=== PATIENT | male | born 1945 | race Caucasian/White ===

== ENCOUNTER 2018-11-28 12:37 | Outpatient (CLI) | payer MEDICARE ==
--- NOTE | 2018-11-28 13:59 | CT ---
CT CHEST NONCONTRAST PULMONARY LOW DOSE LUNG SCAN: HISTORY: Tobacco abuse. FINDINGS: Lungs are hyperinflated. Mild peripheral interstitial scarring and minimal thickening. No pleural f luid or pneumothorax. No focal lung mass is evident. Lack of contrast limits evaluation of the soft tissues. A lobular low-density structure between the origin of the brachiocephalic artery and the lower trachea has the appearance of a small amount of fl uid within the superior pericardial reflection. No bulky adenopathy. There is calcification in the arterial structures. IMPRESSION: 1. Lung RADS category 1. Negative. Suggest routine followup. 2. Atherosclerosis. POS: [facility]
== END 2018-11-28 12:38 | disposition home or self-care (01) ==
LOC: CT 12:37
PROVIDERS: ATTEND Family Medicine
DX: Z87.891 Personal history of nicotine dependence (principal); I70.90 Unspecified atherosclerosis
CPT/HCPCS: G0297

== ENCOUNTER 2020-05-12 21:42 | Inpatient (IN) | payer MEDICARE ==
[~2020-05-12 21:42] MED LIST: Iopamidol-370 76% 500 ML 1 ML ONE
[2020-05-12] MEDS ORDERED: Aspirin Chewable 81 MG TAB ONE (22:28)
[2020-05-12 22:42] LABS: #Lymphocytes 2.5 thou/uL (1.20-3.40); #Monocytes 0.7 thou/uL (0.11-0.59); %Basophils 0.2 % (0.0-1.0); %Eosinophils 0.3 % (0.0-10.0); %Lymphocytes 24.5 % (21.0-51.0); %Monocytes 7.1 % (0.0-10.0); %Neutrophils 67.9 % (42.0-75.0); Hemoglobin 13.7 g/dL (14.0-18.0); Mean Corpuscular HGB CONC 33.3 g/dL (32.0-36.0); Mean Corpuscular Hemoglobin 31.5 pg (27.0-31.0); Mean Corpuscular Volume 94.6 fL (78.0-98.0); Mean Platelet Volume 9.4 fL (7.4-10.4); Platelet Count 276 thou/uL (130-400); RBC Distribution Width 13.2 % (11.5-14.5); Red Blood Cell (RBC) Count 4.35 mill/uL (4.70-6.10); White Blood Cell (WBC) Count 10.2 thou/uL (4.8-10.8)
[2020-05-12 22:49] LABS: PTT 34.5 sec (22.9-36.1); Prothrombin Time 13.2 sec (12.0-14.7)
[2020-05-12 23:06] LABS: ALT (SGPT) 15 U/L (8-55); AST (SGOT) 20 U/L (5-34); Albumin 4.1 g/dL (3.4-4.8); Alkaline Phosphatase 69 U/L (40-110); Anion Gap 15 mmol/L (10-20); BUN (Urea Nitrogen) 32 mg/dL (8.4-25.7); Bilirubin, Total 0.3 mg/dL (0.2-1.2); Calc. Creatinine Clearance 0 mL/min (70-130); Calcium 9.3 mg/dL (7.8-10.44); Carbon Dioxide 25 mmol/L (23-31); Chloride 101 mmol/L (98-107); Estimated GFR-MDRD 39; Globulin 3.3 g/dL (2.4-3.5); Glucose 104 mg/dL (83-110); Potassium 4.7 mmol/L (3.5-5.1); Protein, Total 7.4 g/dL (5.8-8.1); Sodium 136 mmol/L (136-145)
[2020-05-13] MEDS ORDERED: HumaLOG 300 UNITS/3 ML VIAL SC PRN (02:02)
[2020-05-13] MEDS ORDERED: Acetaminophen 325 MG TAB PO PRN (02:02)
[2020-05-13] MEDS ORDERED: Ondansetron PF 4 MG/2 ML Vial IVP PRN (02:02)
[2020-05-13] MEDS ORDERED: Ondansetron ODT 4 MG TAB PO PRN (02:02)
[2020-05-13] MEDS ORDERED: Dextrose 50% Abboject 50 ML SYRINGE SLOW IVP PRN (02:02)
[2020-05-13] MEDS ORDERED: Dextrose 5% in Water 1,000 ML IV PRN (02:02)
--- NOTE | 2020-05-13 02:23 | PDOC.FPRHP ---
- History of Present Illness Chief Complaint: Dysathria History of Present Illness: Pt is a 74 y/o M who reported to ED today after episodes of dysarthria today. He stated that after dinner around 5-6pm he was gardening and noticed that he was having difficulty forming words and felt as if he was slurring his words. While this was occurring pt stated that he did not experience any weakness, numbness, CP/SOB, or palpitations. Pt states that this is the first time he has experienced something like this. He denies hx of CVA or WA. Pt did admit to having a few episodes of palpitations over the past year, but because of their infrequency has thought nothing of it. ED Course: Pt was outside of TPA window upon arrival to ED. CTA small left posterior cerebral artery occlusion, not amenable to clot retrieval. CT head showed no acute bleed. EKG showed Afib w/ RVR HR 141, non-specific T wave changes. Labs: troponin = 0.038. Bun/Hand Twister = 32/1.7. - Allergies/Adverse Reactions Allergies Allergy/AdvReac Type Severity Reaction Status Date / Time No Known Drug Allergies Allergy Unverified 05/13/20 02:18 - History PMHx: -Diabetes -Hypothyroidism PSHx: -Appendectomy -Removal of benign abdominal tumor @ age 4 -Cholecystecomy -Cubital Tunnel -Cervical laminectomy FHx: Social: Denies ETOH use. Denies drug use. Not current smoker. Former smoker, quit 10 years ago. - Review of Systems General: denies: fever/chills ENT: denies: nasal congestion Respiratory: denies: cough, shortness of breath Cardiovascular: denies: chest pain, palpitation Gastrointestinal: denies: nausea, vomiting, diarrhea, constipation, abdominal pain Genitourinary: denies: dysuria, polyuria Neurological: denies: numbness, syncope, weakness - Vital signs BP: 104/71, HR 82, RR 16, Temp 98.5, O2 99% - Physical Exam Constitutional: NAD, awake, alert and oriented HEENT: normocephalic and atraumatic, grossly normal hearing, other (R hearing aid present) Heart: RRR, normal S1/S2 Lungs: CTAB, no respiratory distress, no rales/rhonchi, no wheezing Abdomen: soft, non-tender, bowel sounds present, no masses/distention Musculoskeletal: normal tone Neurological: no focal deficit, CN II-XII intact, normal sensation Skin: no rash/lesions, capillary refill <2 seconds Psychiatric: normal mood and affect, good judgment and insight FMR H&P: Results - Labs Result Diagrams: 05/12/20 22:02 05/13/20 07:25 Lab results: WBC 10.2 thou/uL (4.8-10.8) 05/12/20 22:02 Hgb 13.7 g/dL (14.0-18.0) L 05/12/20 22:02 Hct 41.1 % (42.0-52.0) L 05/12/20 22:02 MCV 94.6 fL (78.0-98.0) 05/12/20 22:02 Plt Count 276 thou/uL (130-400) 05/12/20 22:02 Neutrophils % 67.9 % (42.0-75.0) 05/12/20 22:02 Sodium 136 mmol/L (136-145) 05/12/20 22:02 Potassium 4.7 mmol/L (3.5-5.1) 05/12/20 22:02 Chloride 101 mmol/L (98-107) 05/12/20 22:02 Carbon Dioxide 25 mmol/L (23-31) 05/12/20 22:02 BUN 32 mg/dL (8.4-25.7) H 05/12/20 22:02 Creatinine 1.70 mg/dL (0.7-1.3) H 05/12/20 22:02 Glucose 104 mg/dL (83-110) 05/12/20 22:02 Calcium 9.3 mg/dL (7.8-10.44) 05/12/20 22:02 Total Bilirubin 0.3 mg/dL (0.2-1.2) 05/12/20 22:02 AST 20 U/L (5-34) 05/12/20 22:02 ALT 15 U/L (8-55) 05/12/20 22:02 Alkaline Phosphatase 69 U/L (40-110) 05/12/20 22:02 CK-MB (CK-2) 3.0 ng/mL (0-6.6) 05/12/20 22:02 Serum Total Protein 7.4 g/dL (5.8-8.1) 05/12/20 22:02 Albumin 4.1 g/dL (3.4-4.8) 05/12/20 22:02 FMR H&P: A/P - Problem List (1) Acute ischemic stroke Current Visit: Yes Status: Acute Code(s): I63.9 - CEREBRAL INFARCTION, UNSPECIFIED (2) New onset a-fib Current Visit: Yes Status: Acute Code(s): I48.91 - UNSPECIFIED ATRIAL FIBRILLATION (3) Diabetes mellitus, non-insulin dependent Current Visit: Yes Status: Chronic Code(s): ETB9676 - (4) Hypothyroidism Current Visit: Yes Status: Chronic Code(s): E03.9 - HYPOTHYROIDISM, UNSPECIFIED - Plan ## Acute Ischemic Stroke -outside of TPA window -CTA small left posterior cerebral artery occlusion, not amenable to clot retrieval -CT head showed no acute bleed -ASA and statin -Labs: A1C, lipid panel ordered -MRI in AM -consult neurology in AM ## New Onset Atrial Fibrillation -CHADs = 4, therapeutic dose of lovenox started -Labs: TSH, mag/phos -ECHO ordered -consult cardiology in AM ## CKD Stage 3 -BUN/Hand Twister = 32/1.7 -eGFR = 39 ## NIDDM -mild SSI -home medication: metformin, pioglitazone, ivokana -monitor glucose ## Hypothyroidism -home medication: levothyroxine VTE PPX: Lovenox GI PPX: none Diet: CC Code: Full PCP: [facility] Dispo: pt admitted to inpatient, stroke unit, will monitor closely. will consult neuro and cardiology in AM. FMR H&P: Upper Level - Plan Date/Time: 05/13/20 021 IFernanda, have evaluated this patient and agree with findings/plan as outlined by fashion intern resident. Pertinent changes/additions are listed here. 74YOM with a PMH notable for DMII & hypothyroidism who reported to ED today after episodes of dysarthria that began @ ~1700 today. Patient reports that after be came inside from gardening he noticed that he was having difficulty forming words and felt as if he was slurring his words. He then told his who brought him to the ED for evaluation. He denied any other neurologic symptoms such as headache, visoin changes, focal weakness or numbness/ paresthesias. Upon further questioning; however, he did admit to having a sporadic episodes of palpitations on and off over the past year. He denies any cardiac or stroke history. On exam the patient's VS were WNLs but during the interview his HR would go from normal range to the 150s but he was completely asymptomatic during this. His EKG on presentation showed Afib w/ RVR HR 141. His neuro exam was notable only for mild, trace dysarthria that he reported has markedly improved since arrival. Labs were notable for a slightly elevated trop of 0.038 & his Cr/eGFR were within his baseline range of CKD III w/ a Cr of 1.7 & eGFR of 39. The patient's head CTA was notable for a small left posterior cerebral artery occlusion; but, unfortunately, he was outside the time window for TPA. Neurosurgery was also consulted but reported his occlusion was not ammenable to surgical intervention. The patient will therefore be admitted to the stroke unit for close observation overnight & an MRI in the AM. Will consult the stroke team in the AM & start on ASA & statin therapy. Will obtain a FLP & A1c for further risk stratification. Regarding his newly diagnosed paroxysmal afib, will start on therapeutic lovenox BID dosing, obtain a TTE & consult cardiology in the AM. Rate controlled for now so no need for rate controlling meds. Will also check a TSH level as well as Mg & phos to r/o other organic etiologies for his a fib. Will resume his home meds for his DMII & hypothyroidism. Will renally dose all meds PRN 2/2 his CKDIII. Addendum - Attending - Attending Attestation Date/Time: 05/13/20 4946 I personally evaluated the patient and discussed the management with Dr. Tate on 05/12/2020 I agree with the History, Examination, Assessment and Plan documented above with any addition or exceptions noted below - 74YOM with a h/i Type 2 DM and hypothyroidism who reported to ED today after episodes of dysarthria that began @ ~1700 today when returning from dinner. Patient reports that he noticed that he was having difficulty forming words and felt as if he was slurring his words. Waited for couple of hours and when symptoms did not improve he then told his who brought him to the ED for evaluation. He denied any other neurologic symptoms such as headache, vision changes, focal weakness or numbness /paresthesias. Upon further questioning; however, he did admit to having a sporadic episodes of palpitations on and off over the past year. PMH/PSH/Meds/ SH reviewed and agree with resident's documentation. Afebrile VSS. Exam repeated by me and agree with resident's findings. Labs: WBC=10.2, H/=13.7/ 41.1, Awt=339, Ak=776, K=4.7, Uy=804, CO2=25, BUN/Cr=32/1.70, Ebjw=167, AST/ALT= 20/15, trop=0.027. CTA brain- small left posterior cerebral artery occlusion; CT brain - no acute infarct. A/P: 1) Left posterior cerebral CVA- Admit to stroke. PT/OT/ST; neuro consult. Will check lipids, TSH. 2) Paraxusmal A-fib- no prior diagnosis; most likely source of CVA. Will check echo and consult cardiology. Started on therapeutic lovenox. 3) DM- will check HgBA1c; continue home meds once bedside swallow passed.
[2020-05-13 04:01] LABS: Hemoglobin A1c 7.2 % (4.0-6.0)
[2020-05-13 04:11] LABS: Cardiac Risk 4.6 (Less than 4.5)
[2020-05-13 04:12] LABS: Phosphorus 3.3 mg/dL (2.3-4.7)
[2020-05-13 05:20] LABS: Troponin I 0.027 ng/mL (< 0.028)
--- NOTE | 2020-05-13 06:13 | PDOC.FM ---
- Subjective Subjective: Patient is feeling well. He denies any problems with his speech throughout the evening but feels that he was having trouble while talking to me. - Objective Vital Signs & Weight: BP 95/71, P 72, RR 18, 97% RA, T 98.4 Result Diagrams: 05/12/20 22:02 05/13/20 07:25 Additional Labs: Laboratory Tests 05/13/20 05/13/20 05/13/20 03:33 03:37 03:37 Hemoglobin A1c Phosphorus 3.3 Magnesium 2.0 Troponin I 0.027 Triglycerides Cholesterol LDL Cholesterol, Calc HDL Cholesterol Heart Disease Risk Ratio TSH 3rd Generation 2.0630 05/13/20 05/13/20 03:37 03:37 Hemoglobin A1c 7.2 H Phosphorus Magnesium Troponin I Triglycerides 183 H Cholesterol 174 LDL Cholesterol, Calc 99 HDL Cholesterol 38 Heart Disease Risk Ratio 4.6 TSH 3rd Generation Phys Exam - Physical Examination Constitutional: NAD HEENT: PERRLA, moist MMs, TM's clear Neck: full ROM Respiratory: no wheezing, no rales, no rhonchi, clear to auscultation bilateral Cardiovascular: no significant murmur, no rub irregular rhythm Gastrointestinal: soft, non-tender, no distention Musculoskeletal: no edema, pulses present Neurological: non-focal, normal sensation, moves all 4 limbs dysarthria Psychiatric: normal affect, A&O x 3 Dx/Plan - Plan Plan: ## Acute Ischemic Stroke -outside of tPA window -CTA small left posterior cerebral artery occlusion, not amenable to clot retrieval -CT head showed no acute bleed -ASA and statin -A1C 7.2 -Trig 183, total chol 174, LDL 99, HDL 38 -MRI in AM ## New Onset Atrial Fibrillation -CHADs = 4, therapeutic dose of lovenox started -TSH, Mg, Phos - wnl -ECHO ordered -consulted cardiology (05/13) ##GINNY -resolved -BUN/Cloth Bleaching Range Operator Chief = 32/1.7 --> 27/1.3 -eGFR = 39 --> 54 ## NIDDM -mild SSI -home medication: metformin, pioglitazone, ivokana -monitor glucose ## Hypothyroidism -home medication: levothyroxine VTE PPX: Lovenox GI PPX: none Diet: CC Code: Full PCP: [facility] Dispo: pt admitted to inpatient, stroke unit, will monitor closely. will consult neuro and cardiology in AM. Addendum - Attending - Attending Attestation Date/Time: 05/13/20 [id number] I personally evaluated the patient and discussed the management with Dr. Gonzales. I agree with the History, Examination, Assessment and Plan documented above with any addition or exceptions noted below. he is speech and articulation appear normal or close to normal this morning. MRI pending. Neuro and cardiology consults placed. high intensity statin, ASA, anticoagulation, and rate control underway. f/u specialist recs.
[2020-05-13] MEDS ORDERED: Enoxaparin Sodium 100 MG/ML SYRINGE ONE (06:25)
[2020-05-13] MEDS: Enoxaparin Sodium 100 MG/ML SYRINGE SC SCH ×2 (06:32→18:04)
[2020-05-13] MEDS: Levothyroxine Sodium 100 MCG TAB PO SCH (06:35)
--- NOTE | 2020-05-13 07:10 | CT ---
CT HEAD WITHOUT CONTRAST: Date: 05/12/2020 INDICATION: Level I stroke. Trouble speaking. No comparison. FINDINGS: Ventricles have normal size and position. There is no evidence of intracranial hemorrhage. There are chronic ischemic white matter changes. There is no evidence of acute cortical infarct. There is evide nce of old lacunar infarcts involving the left thalamus and the left lentiform nucleus. IMPRESSION: No evidence of acute cortical infarct. There are chronic ischemic changes as described. Findings relayed to Dr. Newsome at 2207 hours. CODE CR. POS: [facility]
--- NOTE | 2020-05-13 08:01 | CT ---
CTA HEAD WITH CONTRAST: Axial tomograms were obtained following an angio protocol with multiplanar reconstruction and 3d post processing. INDICATION: Stroke protocol. FINDINGS: The intracranial internal carotid arteries are patent. There is atherosclerotic calcification involving the cavernous portion of both internal carotid arter ies. This produces mild luminal narrowing bilaterally. Both middle cerebral arteries are patent and symmetric. No evidence of M1 stenosis. Anterior cerebral arteries are patent and symmetric. There is atretic A1 segment on the right. Basilar artery is small but patent. The posterior cerebral arteries are patent and symmetric proximally. There is evidence of occlusion of the left posterior cerebral artery in the paramedian cephalic ciste rn region at the T2 level. IMPRESSION: Question occlusion of the left posterior cerebral artery involving the P2 segment in the region of th e ambient cistern on the left. CTA NECK: Axial tomograms were obtained with multiplanar reconstruction. Three-D post processing. FINDINGS: No evidence of stenosis at the origin of the arch vessels. Common carotid arteries are patent. Mild atherosclerotic change is seen at the bulbs bilaterally. There is no evidence of internal carot id artery stenosis. Both internal carotid arteries are tortuous. The vertebral arteries are patent. Mildly dominant right vertebral. The left vertebral appears to t erminate in PICA. IMPRESSION: Mild atherosclerotic changes at the bulbs bilaterally. No evidence of extracranial internal carotid artery stenosis. Findings are related to Dr. Newsome. CODE CR POS: [facility]
[2020-05-13 08:07] LABS: Anion Gap 14 mmol/L (10-20); BUN (Urea Nitrogen) 27 mg/dL (8.4-25.7); Calc. Creatinine Clearance 0 mL/min (70-130); Calcium 8.8 mg/dL (7.8-10.44); Carbon Dioxide 24 mmol/L (23-31); Chloride 102 mmol/L (98-107); Estimated GFR-MDRD 54; Glucose 159 mg/dL (83-110); Potassium 4.1 mmol/L (3.5-5.1); Sodium 136 mmol/L (136-145)
[2020-05-13] MEDS ORDERED: Aspirin Chewable 81 MG TAB ONE (08:55)
[2020-05-13] MEDS: Pioglitazone HCl 15 MG TAB PO SCH (09:00)
[2020-05-13] MEDS: Aspirin 81 mg Enteric Coated Tablet PO SCH (09:00)
[2020-05-13] MEDS: metFORMIN 500 MG TAB PO SCH ×2 (09:00→18:05)
[2020-05-13] MEDS ORDERED: Enoxaparin Sodium 40 MG/0.4 ML SYRINGE SC SCH (09:00)
[2020-05-13] MEDS ORDERED: Magnevist 469MG/ML 20 ML VIAL ONE (09:36)
--- NOTE | 2020-05-13 10:44 | MRI ---
MRI BRAIN WITH AND WITHOUT CONTRAST: DATE: 05/13/2020 HISTORY: 74-year-old male with acute stroke due to atrial fibrillation TECHNIQUE: Multiplanar, multisequence MRI of the brain obtained pre and post IV injection of gadolinium based co ntrast agent. FINDINGS: There is no obstructive hydrocephalus. There is no midline shift or any other evidence of mass effect . There is no extra-axial fluid collection. There is a moderate degree of T2-hyperintensities in the cerebral white matter consistent with chronic ischemic white matter changes due to microvascular atherosclerosis. There is no abnormal enhancement, mass, recent hemorrhage, or restricted diffusion. There are are several tiny old lacunar infarctions in the left basal ganglia, and at least one in the left thalamus. Questionable very tiny old lacunar infarction in right renal ganglia. Filling defect within junction between the straight sinus and the torcular Herophili represents arach noid granulation. No dural venous sinus thrombosis. Absence of A1 segment of right anterior cerebral artery. Right A2 segment is supplied by left anterior cerebral artery via patent anterior co mmunicating artery. IMPRESSION: 1) moderate chronic ischemic white matter changes. 2) tiny old lacunar infarctions in left thalamus and left basal ganglia. 3) no acute findings
[2020-05-13 17:15] VITALS: BMI 30.4
--- NOTE | 2020-05-13 19:19 | CON ---
DATE OF CONSULTATION: HISTORY OF PRESENT ILLNESS: The patient is a 74-year-old gentleman with no previous cardiac history, who presents for evaluation of dysarthria. The patient was in his usual state of health, when he stared noting having difficulty speaking. He was brought to the emergency room for further evaluation. The patient denied having any palpitations. He denied having any chest discomfort or dyspnea. PAST MEDICAL HISTORY: 1. Diabetes mellitus. 2. Hypertension. PAST SURGICAL HISTORY: Appendectomy, cholecystectomy, elbow surgery. SOCIAL HISTORY: Former smoker. MEDICATIONS: 1. Metformin 500 b.i.d. 2. Actos 15 mg daily. SOCIAL HISTORY: Nonsmoker. ALLERGIES: NO KNOWN DRUG ALLERGIES. FAMILY HISTORY: No strong family history of coronary artery disease. REVIEW OF SYSTEMS: Ten-point system otherwise unremarkable. No history of easy bruising or bleeding. PHYSICAL EXAMINATION: GENERAL: A well-developed gentleman, in no acute distress. VITAL SIGNS: Blood pressure of 108/72. NECK: Showed no jugular venous distention. LUNGS: Clear to auscultation. HEART: Regular rate and rhythm. Normal S1 and S2. No murmurs. ABDOMEN: Nondistended. EXTREMITIES: Showed no edema. VASCULAR: Radial pulses 2+. LABORATORY DATA: Sodium 136, potassium 4.1, chloride 102, bicarbonate 24, BUN 27, creatinine 1.3, glucose was 159. White blood cell count is 10.2, hemoglobin 13.7, hematocrit 41.1, platelets 276. INR was 2.0. His EKG revealed atrial fibrillation with rapid ventricular response and nonspecific T-wave abnormality. CT scan revealed a questionable occlusion of the left posterior cerebral artery. There is atherosclerotic plaque in the internal carotid arteries with mild luminal narrowing. IMPRESSION: 1. Cerebrovascular accident. 2. New-onset atrial fibrillation. 3. Diabetes mellitus. This gentleman presents with a cerebrovascular accident. He has new onset atrial fibrillation, which converted to normal sinus rhythm. The patient will be started on a low-dose of beta-mavis. The patient has been treated with Lovenox and aspirin. From a cardiac standpoint, he has a CHADS-VAS score of 5. He will need a lifetime anticoagulation. I would recommend he be treated with Eliquis. We will check the patient's echocardiogram. Follow this patient with you through his hospitalization. Job ID: [id number] [facility]
[2020-05-13] MEDS: Atorvastatin Calcium 40 MG TAB PO SCH (20:39)
--- NOTE | 2020-05-14 05:43 | PDOC.FM ---
- Subjective Subjective: Patient has no complaints this morning. He thinks his speech is improving but admits it is hard for him to tell. He denies any chest pain or palpitations this morning. - Objective Vital Signs & Weight: Vital Signs (12 hours) Temp Pulse Resp BP BP Pulse Ox 05/14/20 03:45 97.8 F 80 20 89/59 L 96 05/13/20 23:59 97.9 F 61 20 92/66 96 05/13/20 19:41 98.1 F 88 12 103/69 97 Weight Weight 101.605 kg Result Diagrams: 05/12/20 22:02 05/14/20 04:52 EKG Reviewed by me: Yes (tele: sinus rhythm, 5 min of a flutter last night) Phys Exam - Physical Examination Constitutional: NAD HEENT: PERRLA, moist MMs, sclera anicteric Neck: full ROM Respiratory: no wheezing, no rales, no rhonchi, clear to auscultation bilateral Cardiovascular: no significant murmur, no rub irregular rhythm Gastrointestinal: soft, non-tender, no distention, positive bowel sounds Musculoskeletal: no edema, pulses present Neurological: moves all 4 limbs Psychiatric: normal affect, A&O x 3 Dx/Plan - Plan Plan: Plan: 74 yo M with a history of DMII and hypothyroidism who presented for dysarthria and new onset Afib with RVR. ## Acute Ischemic Stroke -outside of tPA window -CTA small left posterior cerebral artery occlusion, not amenable to clot retrieval -CT head showed no acute bleed -ASA and statin -A1C 7.2 -Trig 183, total chol 174, LDL 99, HDL 38 -MRI no acute findings -neuro consult ## New Onset Atrial Fibrillation -CHADs = 4, therapeutic dose of lovenox started -TSH, Mg, Phos - wnl -ECHO ordered -Card: started on 12.5mg metoprolol. Recommends anticoagulation with eliquis. -start on eliquis 5mg BID ##GINNY -resolved -BUN/Ramp Flight Attendant = 32/1.7 --> 27/1.3 -eGFR = 39 --> 54 ## NIDDM -mild SSI -home medication: metformin, pioglitazone, ivokana -monitor glucose ## Hypothyroidism -home medication: levothyroxine VTE PPX: Lovenox GI PPX: none Diet: CC Code: Full PCP: [facility] Dispo: pt admitted to inpatient, stroke unit, will monitor closely. Cardiology and neuro recs. Addendum - Attending - Attending Attestation Date/Time: 05/14/20 1539 I personally evaluated the patient and discussed the management with Dr. Gonzales. I agree with the History, Examination, Assessment and Plan documented above with any addition or exceptions noted below. awaiting neurology and cardiology recs. Possible d/c this afternoon. Started on eliquis for a-fib.
[2020-05-14 05:50] LABS: Anion Gap 14 mmol/L (10-20); BUN (Urea Nitrogen) 24 mg/dL (8.4-25.7); Calc. Creatinine Clearance 69 mL/min (70-130); Calcium 8.9 mg/dL (7.8-10.44); Carbon Dioxide 24 mmol/L (23-31); Chloride 103 mmol/L (98-107); Estimated GFR-MDRD 52; Glucose 247 mg/dL (83-110); Potassium 4.6 mmol/L (3.5-5.1); Sodium 136 mmol/L (136-145)
[2020-05-14] MEDS: Levothyroxine Sodium 100 MCG TAB PO SCH (06:30)
[2020-05-14] MEDS: Enoxaparin Sodium 100 MG/ML SYRINGE SC SCH (06:31)
[2020-05-14] MEDS: Pioglitazone HCl 15 MG TAB PO SCH (09:47)
[2020-05-14] MEDS: Aspirin 81 mg Enteric Coated Tablet PO SCH (09:47)
[2020-05-14] MEDS: metFORMIN 500 MG TAB PO SCH ×2 (09:49→17:47)
--- NOTE | 2020-05-14 12:01 | EEG ---
DATE OF SERVICE: 05/14/2020 ATTENDING PHYSICIAN: Toya Steel MD This EEG was performed using 24-channel [employer] video digital EEG machine with 24 disk electrodes. This was an extended 2 hours 5 minutes of inpatient video EEG recording. Digital analysis of the EEG was done for spike and seizure detection, which revealed no abnormalities. BACKGROUND: There is nonsustained posterior background rhythm of 8 to 8.5 Hz. Minimal reactivity seen with eye opening and closure. HYPERVENTILATION: Not performed. PHOTIC STIMULATION: No significant response seen with photic stimulation. SLEEP: Drowsiness and sleep are observed. EEG DIAGNOSES: 1. Occasional irregular theta activity seen during the recording. 2. Nonsustained posterior background rhythm. CLINICAL INTERPRETATION: This EEG is consistent with mild generalized nonspecific cerebral dysfunction. No ictal or interictal epileptiform abnormalities seen during the recording. Job ID: [id number]
--- NOTE | 2020-05-14 13:55 | CON ---
NEUROLOGY CONSULTATION DATE OF CONSULTATION: 05/14/2020 REASON FOR CONSULTATION: Dysarthria and difficulty speaking. HISTORY OF PRESENT ILLNESS: Mr. Tru Calixto is a 74-year-old male with medical history significant for hypothyroidism and diabetes, presented to the emergency room on 05/12/2020 because of episodes of dysarthria. According to the patient, this started around 5:00 p.m. or 6:00 p.m. when he was having dinner on 05/12/2020, when he had difficulty talking. He was unable to get the right words out and speak the right words and his speech was slurred. The patient denies any focal numbness, focal paresthesias, nausea, vomiting, headache, chest pain, abdominal pain, dizziness, vertigo, blurred vision, loss of vision associated with this episode. When he presented to the emergency room, he was out of tPA window. CTA showed small left posterior cerebral artery occlusion, which was not amenable to clot retrieval. CT of the head did not show any acute bleed. The EKG showed atrial fibrillation with RVR, heart rate 141, and he was admitted for further evaluation. The patient's speech is now improved, but he is still not back to the baseline. REVIEW OF SYSTEMS: All 10 systems were reviewed and were negative except the pertinent positive and negative mentioned in the HPI. PAST MEDICAL HISTORY: Diabetes and hypothyroidism. PAST SURGICAL HISTORY: Status post appendectomy, removal of benign abdominal tumor at age 3, cholecystectomy, and cervical laminectomy. FAMILY HISTORY: The patient denies smoking, alcohol, or illegal drug use. He is a former smoker. Quit 10 years ago. Objective Vital Signs & Weight: Vital Signs (12 hours) Temp Pulse Resp BP BP Pulse Ox 05/14/20 03:45 97.8 F 80 20 89/59 L 96 05/13/20 23:59 97.9 F 61 20 92/66 96 05/13/20 19:41 98.1 F 88 12 103/69 97 Weight Weight 101.605 kg PHYSICAL EXAMINATION: CONSTITUTIONAL: Alert and awake male, in no acute distress. HEENT: Normocephalic and atraumatic. CVS: Regular rate and rhythm. CHEST: Clear. ABDOMEN: Soft. NECK: Supple. NEUROLOGIC: Mental status, the patient is alert and oriented to person, place, and time. Speech is clear. Fund of knowledge is appropriate. Recent and remote memory intact. Cranial nerves II through XII intact. Motor; muscle tone and bulk are normal. Strength 5/5 bilaterally. Sensory intact. Cerebellar; finger-nose testing intact. Gait, deferred due to patient's safety reason. DATA REVIEWED: I reviewed the labs which were significant for anemia with 13.7 hemoglobin and 41.1 hematocrit and blood glucose was 159. - Allergies/Adverse Reactions Allergies Allergy/AdvReac Type Severity Reaction Status Date / Time No Known Drug Allergies Allergy Unverified 05/13/20 02:18 Lab results: WBC 10.2 thou/uL (4.8-10.8) 05/12/20 22:02 Hgb 13.7 g/dL (14.0-18.0) L 05/12/20 22:02 Hct 41.1 % (42.0-52.0) L 05/12/20 22:02 MCV 94.6 fL (78.0-98.0) 05/12/20 22:02 Plt Count 276 thou/uL (130-400) 05/12/20 22:02 Neutrophils % 67.9 % (42.0-75.0) 05/12/20 22:02 Sodium 136 mmol/L (136-145) 05/12/20 22:02 Potassium 4.7 mmol/L (3.5-5.1) 05/12/20 22:02 Chloride 101 mmol/L (98-107) 05/12/20 22:02 Carbon Dioxide 25 mmol/L (23-31) 05/12/20 22:02 BUN 32 mg/dL (8.4-25.7) H 05/12/20 22:02 Creatinine 1.70 mg/dL (0.7-1.3) H 05/12/20 22:02 Glucose 104 mg/dL (83-110) 05/12/20 22:02 Calcium 9.3 mg/dL (7.8-10.44) 05/12/20 22:02 Total Bilirubin 0.3 mg/dL (0.2-1.2) 05/12/20 22:02 AST 20 U/L (5-34) 05/12/20 22:02 ALT 15 U/L (8-55) 05/12/20 22:02 Alkaline Phosphatase 69 U/L (40-110) 05/12/20 22:02 CK-MB (CK-2) 3.0 ng/mL (0-6.6) 05/12/20 22:02 Serum Total Protein 7.4 g/dL (5.8-8.1) 05/12/20 22:02 Albumin 4.1 g/dL (3.4-4.8) 05/12/20 22:02 ASSESSMENT AND PLAN: Mr. Tru Calixto is consulted for episode of dysarthria and aphasia, which is now improved. MRI of the brain reviewed, which was negative for acute intracranial process. Most likely TIA. Telemetry,- atrial fibrillation,consider Cardiology input. Neuro checks every 4 hours. Continue aspirin and statin for secondary stroke prevention. 2D echo to evaluate cardiac function, left ventricular ejection fraction. Continue home medications. Strict control of the blood pressure and blood glucose. DVT prophylaxis. Neuro checks every 4 hours. Continue medical management per primary team. Consider EEG to rule out underlying seizure activity. We will continue to follow. Thank you for the consult. Job ID: [id number] MTDD
[2020-05-14] MEDS: Atorvastatin Calcium 40 MG TAB PO SCH (20:47)
[2020-05-14] MEDS: Apixaban 5 MG TAB PO SCH (20:48)
--- NOTE | 2020-05-15 05:45 | PDOC.FM ---
- Subjective Subjective: Mr. Calixto is feeling well this morning. He had a question regarding his lower BPs and HR and we discussed his new metoprolol prescription. He said Dr. Wynn came in yesterday and said he was good to go. - Objective Vital Signs & Weight: Vital Signs (12 hours) Temp Pulse Resp BP BP Pulse Ox 05/15/20 04:32 97.5 F L 88 14 102/74 98 05/14/20 23:10 98.1 F 67 15 100/71 92 L 05/14/20 19:30 97.7 F 71 16 125/87 92 L Weight Weight 101.605 kg I&O: 05/13/20 05/14/20 05/15/20 06:59 06:59 06:59 Intake Total 1200 Balance 1200 Result Diagrams: 05/12/20 22:02 05/15/20 05:18 EKG Reviewed by me: Yes (tele: SR 60-70s) Radiology Reviewed by me: Yes Radiology: ECG - no epileptiform abnormalities ECHO - EF 60-65%, mild tricuspid regurgitation Phys Exam - Physical Examination Constitutional: NAD HEENT: PERRLA, moist MMs, sclera anicteric Neck: full ROM Respiratory: no wheezing, no rales, no rhonchi, clear to auscultation bilateral Cardiovascular: RRR, no significant murmur, no rub Gastrointestinal: soft, non-tender, no distention, positive bowel sounds Musculoskeletal: no edema, pulses present Neurological: moves all 4 limbs Psychiatric: normal affect, A&O x 3 Dx/Plan - Plan Plan: 74 yo M with a history of DMII and hypothyroidism who presented for dysarthria and new onset Afib with RVR. ## Acute Ischemic Stroke -outside of tPA window -CTA small left posterior cerebral artery occlusion, not amenable to clot retrieval -CT head showed no acute bleed -ASA and statin -A1C 7.2 -Trig 183, total chol 174, LDL 99, HDL 38 -MRI no acute findings -EEG no epileptiform abnormalities -Neuro: event suspicious for TIA, continue aspirin and statin ## New Onset Atrial Fibrillation -CHADs = 4, therapeutic dose of lovenox started -TSH, Mg, Phos - wnl -ECHO EF 60-65%, mild tricuspid regurgitation -12.5mg metoprolol -Eliquis 5mg BID for anticoagulation -Card: no chart note or dictation since 05/13. Per patient, he has been released. Will follow up. ##GINNY -Cr 1.39, BUN 18, GFR 50 -continue to monitor -initial GINNY had resolved -BUN/Case Management Social Worker = 32/1.7 --> 27/1.3 -eGFR = 39 --> 54 ## NIDDM -mild SSI -home medication: metformin, pioglitazone, ivokana -monitor glucose: 250 -Metformin held for 48 hours. Patient refused SSI. Will restart metformin this AM. ## Hypothyroidism -home medication: levothyroxine VTE PPX: Lovenox GI PPX: none Diet: CC Code: Full PCP: Koki Dispo: pt admitted to inpatient, stroke unit, will monitor closely. Cardiology and neuro recs. Ready for discharge. Addendum - Attending - Attending Attestation Date/Time: 05/15/20 [id number] I personally evaluated the patient and discussed the management with Dr. Gonzales. I agree with the History, Examination, Assessment and Plan documented above with any addition or exceptions noted below. d/c home
[2020-05-15 05:48] LABS: Anion Gap 11 mmol/L (10-20); BUN (Urea Nitrogen) 18 mg/dL (8.4-25.7); Calc. Creatinine Clearance 66 mL/min (70-130); Calcium 8.6 mg/dL (7.8-10.44); Carbon Dioxide 27 mmol/L (23-31); Chloride 103 mmol/L (98-107); Estimated GFR-MDRD 50; Glucose 255 mg/dL (83-110); Potassium 4.2 mmol/L (3.5-5.1); Sodium 137 mmol/L (136-145)
[2020-05-15] MEDS: Levothyroxine Sodium 100 MCG TAB PO SCH (05:56)
[2020-05-15 07:45] VITALS: BP 93/62; TEMP 97.9
[2020-05-15] MEDS: metFORMIN 500 MG TAB PO SCH (08:22)
[2020-05-15] MEDS: Pioglitazone HCl 15 MG TAB PO SCH (08:22)
[2020-05-15] MEDS: Aspirin 81 mg Enteric Coated Tablet PO SCH (08:22)
[2020-05-15] MEDS: Apixaban 5 MG TAB PO SCH (08:22)
--- NOTE | 2020-05-15 11:46 | PDOC.HOSPP ---
- Subjective Encounter Date: 05/15/20 Subjective: NEUROLOGY PROGRESS NOTE Patient stable and denies any new complaints. - Objective Vital Signs & Weight: Vital Signs (12 hours) Temp Pulse Resp BP Pulse Ox 05/15/20 07:44 97.9 F 89 16 93/62 94 L 05/15/20 04:32 97.5 F L 88 14 102/74 98 Weight Weight 224 lb I&O: 05/14/20 05/15/20 05/16/20 06:59 06:59 06:59 Intake Total 1200 240 Balance 1200 240 Result Diagrams: 05/12/20 22:02 05/15/20 05:18 Additional Labs: Accuchecks 05/15/20 05/14/20 05/14/20 06:11 20:35 16:52 POC Glucose 250 H 173 H 160 H Radiology Reviewed by me: Yes EKG Reviewed by me: Yes Hospitalist ROS - Review of Systems Constitutional: denies: fever, chills, sweats, weakness, malaise, other Eyes: denies: pain, vision change, conjunctivae inflammation, eyelid inflammation, redness, other ENT: denies: ear pain, ear discharge, nose pain, nose discharge, nose congestion , mouth pain, mouth swelling, throat pain, throat swelling, other Respiratory: denies: cough, dry, shortness of breath, hemoptysis, SOB with excertion, pleuritic pain, sputum, wheezing, other Cardiovascular: denies: chest pain, palpitations, orthopnea, paroxysmal noc. dyspnea, edema, light headedness, other Gastrointestinal: denies: nausea, vomiting, abdominal pain, diarrhea, constipation, melena, hematochezia, other Genitourinary: denies: dysuria, frequency, incontinence, hematuria, retention, other Musculoskeletal: denies: neck pain, shoulder pain, arm pain, back pain, hand pain, leg pain, foot pain, other - Medication Medications: Active Medications Generic Name Dose Route Start Last Admin Trade Name Freq PRN Reason Stop Dose Admin Apixaban 5 mg 05/14/20 21:00 05/15/20 08:22 Eliquis PO 5 mg BID RADHA Administration Atorvastatin Calcium 40 mg 05/13/20 21:00 05/14/20 20:47 Lipitor PO 40 mg HS RADHA Administration Levothyroxine Sodium 100 mcg 05/13/20 06:00 05/15/20 05:56 Synthroid PO 100 mcg 0600 RADHA Administration Metformin HCl 500 mg 05/13/20 08:00 05/15/20 08:22 Glucophage PO 500 mg BID-WM RADHA Administration Pioglitazone HCl 15 mg 05/13/20 09:00 05/15/20 08:22 Actos PO 15 mg DAILY RADHA Administration Sodium Chloride 10 ml 05/13/20 02:02 05/15/20 08:24 Flush - Normal Saline IVF 10 ml PRN PRN Administration Saline Flush - Exam General Appearance: awake alert Eye: PERRL ENT: normocephalic atraumatic Neck: supple Heart: RRR Respiratory: CTAB Gastrointestinal: soft Extremities: no cyanosis Skin: normal turgor Neurological: no new deficit Musculoskeletal: normal tone Psychiatric: normal affect, normal behavior, A&O x 3, oriented to person, oriented to place, oriented to time Hosp A/P (1) Acute ischemic stroke Code(s): I63.9 - CEREBRAL INFARCTION, UNSPECIFIED Status: Acute (2) New onset a-fib Code(s): I48.91 - UNSPECIFIED ATRIAL FIBRILLATION Status: Acute (3) Diabetes mellitus, non-insulin dependent Code(s): JRQ8969 - Status: Chronic (4) Hypothyroidism Code(s): E03.9 - HYPOTHYROIDISM, UNSPECIFIED Status: Chronic - Plan PT/OT, speech therapy 74 yo M with a history of diabetes and hypothyroidism presented with dysarthria and new onset atrial fibrillation with RVR. MRI brain reviewed and was negative. Most likely TIA. CTA showed small left posterior cerebral artery occlusion, not amenable to clot retrieval CT head reviewed and was negative for acute bleed Telemetry. Neurochecks every 4 hours Discontinue aspirin since patient is on Eliquis for atrial fibrillation. Continue Eliquis 5mg BID for anticoagulation Labs reviewed: HbA1C 7.2 and Trig 183, total chol 174, LDL 99, HDL 38 EEG reviewed and was negative for acute epileptiform abnormalities Continue statin for secondary stroke prevention. ECHO EF 60-65%, mild tricuspid regurgitation. Cardiology on board. PT/OT Continue medical management per primary team. Plan discussed with the patient and the floor team during MDR rounds.
--- NOTE | 2020-05-16 23:14 | DIS ---
DATE OF ADMISSION: 05/12/2020 DATE OF DISCHARGE: 05/15/2020 RESIDENT: Alfred Gonzales MD ADMITTING ATTENDING: Avani Rob MD DISCHARGE ATTENDING: Mikey Ely MD CONSULTS: Neuro, Cardiology, and Stroke Team. PROCEDURES: None. PRIMARY DIAGNOSIS: Transient ischemic attack. SECONDARY DIAGNOSES: 1. New diagnosed paroxysmal atrial fibrillation. 2. Diabetes type 2. 3. Hypothyroidism. DISCHARGE MEDICATIONS: 1. Metformin 500 mg p.o. daily. 2. Pioglitazone 45 mg p.o. daily. 3. Levothyroxine 50 mcg p.o. daily. 4. Canagliflozin 100 mg p.o. daily. 5. Eliquis 5 mg p.o. b.i.d. 6. Atorvastatin 40 mg p.o. at bedtime. HISTORY OF PRESENT ILLNESS AND HOSPITAL COURSE: This is a 74-year-old male with history of diabetes type 2 and hypothyroidism, presenting to the ED complaining of dysarthria for the past 4 to 5 hours. The patient denied weakness, numbness, chest pain, shortness of breath, or palpitations at the time of exam. His peak seemed to be at baseline at presentation. A1c was 7.2, TSH 2.[address] head revealed no acute bleeding. CTA revealed a small left posterior cerebral artery occlusion and MRI head showed no acute findings. The patient was started on a statin. Upon admission, the patient also mentioned that he had been experiencing palpitations for the past few months, but did not think much of it. He was found to be in atrial fibrillation with rapid ventricular response with a heart rate in the 140s. He did not have a previous diagnosis of atrial fibrillation. Cardiology was consulted. Echo revealed ejection fraction 60% to 65% with mild tricuspid regurgitation. The patient was prescribed aspirin and metoprolol while in hospital, but these were discontinued upon discharge. Patient had an GINNY on admission with a creatinine of 1.7 and GFR of 39. This resolved with interventions with creatinine of 1.3 and GFR of 27. DISPOSITION: Stable. DISCHARGE INSTRUCTIONS: 1. Location: Home. 2. Diet: Regular. 3. Activity: As tolerated. 4. Followup: Follow up with his PCP in 2 to 4 weeks. Job ID: [id number]
--- NOTE | 2020-05-17 06:38 | PQF ---
CLINICAL DOCUMENTATION CLARIFICATION FORM: Dear : __Toya Steel DateTime:_05/17/2020__ Please exercise your independent, professional judgment in responding to the clarification form. Clinical indicators are provided on the bottom of this form for your review Please check appropriate box(es): [ ] TIA due to left posterior cerebral artery occlusion [ x ] TIA not due to left posterior cerebral artery occlusion [x ] Other diagnosis __new onset atrial fibrillation with RVR [ ] Unable to determine Physician Signature: Date/Time: For continuity of documentation, please document condition throughout progress notes and discharge summary. Thank You. To be completed by CDI/Coding staff for physician review: w Present w Clinical Indicators - Signs / Symptoms / Labs w Results and Location in Medical Record w [x ] w Transient atrial attack w , 05/15, Alfred Gonzales MD w [x ] w CTA revealed a small left posterior cerebral artery occlusion w , , Alfred Gonzales MD w [x ] w Presented with dysarthria and new atrial fibrillation with RVR w Hospital , 05/15, Toya Steel MD w w w w Present w Risk Factors w Results and Location in Medical Record w [x ] w Paroxysmal arterial fibrillation w DS, 05/15, Alfred Gonzales MD w [x ] w Outside of TPA window w H&P, 05/13, Mikey Ely MD w w w w w w w Present w Treatments w Results and Location in Medical Record w [x ] w Neurology consult w Consult report, 05/13, Oren Gonsalez MD w [ x ] w Brain MRI w 05/13, Cuong Bacon MD w [ x ] w Aspirin.PO w MAR, 05/13 w w w CDS/Turbine Assembler Signature: Annamaria Dumont Phone #: [phone] Date/Time:_05/17/2020 This is a permanent part of the Medical Record [facility]
== END 2020-05-15 13:44 | disposition home or self-care (01) | DRG 69 ==
LOC: ERS 21:42 → ERHOLD 23:18 → 2SE 05-13 16:38
PROVIDERS: ADMIT Family Medicine; ATTEND Family Medicine
DX: G45.9 Transient cerebral ischemic attack, unspecified (principal); N17.9 Acute kidney failure, unspecified; I48.0 Paroxysmal atrial fibrillation; R47.1 Dysarthria and anarthria; N18.3 Chronic kidney disease, stage 3 (moderate); E03.9 Hypothyroidism, unspecified; E11.22 Type 2 diabetes mellitus with diabetic chronic kidney disease; Z79.4 Long term (current) use of insulin; Z79.01 Long term (current) use of anticoagulants; Z90.49 Acquired absence of other specified parts of digestive tract; Z87.891 Personal history of nicotine dependence
CPT/HCPCS: 36415; 36416; 70450; 70496; 70498; 70553; 80048; 80053; 80061; 82553; 83036; 83735; 84100; 84443; 84484; 85025; 85610; 85730; 93005; 93306; 95712; 95816; 95819; 95957; A9579; J1650; Q9967

== ENCOUNTER 2020-06-24 14:57 | Outpatient (CLI) | payer MEDICARE, OTHER ==
--- NOTE | 2020-06-25 09:27 | CT ---
CT PULMONARY LUNG SCAN WITHOUT CONTRAST: 06/24/20 INDICATION: 74-year-old male former smoker; smoked since a child and quit in 2005. Smoked approximately one pack per day. COMPARISON: Prior exam dated 11/28/2018. FINDINGS: There is stable pleural thickening involving the right posterior lung. There is stable scattered inte rstitial fibrotic change. No suspicious pulmonary nodule is evident. No pathologically enlarged lymph node is evident. Fluid within the superior pericardial recess is similar appearing. There are justice ry artery and thoracic aortic calcifications. There is a small hiatal hernia. The visualized adrenal glands appear within normal limits. No definite acute osseous abnormality is evident. IMPRESSION: Lung RADS category 1 - negative. Recommend routine annual low dose lung cancer screening CT for ian nued surveillance. POS: [facility]
== END 2020-06-24 14:58 | disposition home or self-care (01) ==
LOC: BICCT 14:57
PROVIDERS: ATTEND Family Medicine
DX: Z12.2 Encounter for screening for malignant neoplasm of respiratory organs (principal); Z87.891 Personal history of nicotine dependence
CPT/HCPCS: G0297

== ENCOUNTER 2020-07-12 13:30 | Emergency (ER) | payer MEDICARE, OTHER ==
[2020-07-12] MEDS ORDERED: HYDROcodone/Acetaminophen 5/325 mg Tablet ONE (14:00)
[2020-07-12 14:29] LABS: #Basophils 0.1 thou/uL (0.0-0.2); #Lymphocytes 1.6 thou/uL (1.20-3.40); #Monocytes 0.7 thou/uL (0.11-0.59); #Neutrophils 8.6 thou/uL (1.40-6.50); %Basophils 0.5 % (0.0-1.0); %Eosinophils 0.4 % (0.0-10.0); %Lymphocytes 14.8 % (21.0-51.0); %Monocytes 6.5 % (0.0-10.0); %Neutrophils 77.9 % (42.0-75.0); Hemoglobin 13.2 g/dL (14.0-18.0); Mean Corpuscular HGB CONC 33.7 g/dL (32.0-36.0); Mean Corpuscular Volume 94.8 fL (78.0-98.0); Platelet Count 280 thou/uL (130-400); RBC Distribution Width 12.6 % (11.5-14.5); Red Blood Cell (RBC) Count 4.12 mill/uL (4.70-6.10); White Blood Cell (WBC) Count 11.1 thou/uL (4.8-10.8)
== END 2020-07-12 14:49 | disposition home or self-care (01) ==
LOC: ERS 13:30
DX: R04.0 Epistaxis (principal); E11.9 Type 2 diabetes mellitus without complications; E03.9 Hypothyroidism, unspecified; E78.5 Hyperlipidemia, unspecified; Z86.73 Personal history of transient ischemic attack (TIA), and cerebral infarction without residual deficits; Z87.891 Personal history of nicotine dependence; Z79.899 Other long term (current) drug therapy; Z79.84 Long term (current) use of oral hypoglycemic drugs; Z79.01 Long term (current) use of anticoagulants
CPT/HCPCS: 36415; 85025; 99283

== ENCOUNTER 2020-07-17 13:45 | Inpatient (IN) | payer MEDICARE, OTHER ==
[2020-07-17 16:21] LABS: Hemoglobin 12.9 g/dL (14.0-18.0); Mean Corpuscular HGB CONC 32.2 g/dL (32.0-36.0); Mean Corpuscular Volume 96.2 fL (78.0-98.0); Mean Platelet Volume 9.5 fL (7.4-10.4); Platelet Count 283 thou/uL (130-400); RBC Distribution Width 12.7 % (11.5-14.5); Red Blood Cell (RBC) Count 4.16 mill/uL (4.70-6.10); White Blood Cell (WBC) Count 8.9 thou/uL (4.8-10.8)
[2020-07-17 17:02] LABS: Anion Gap 17 mmol/L (10-20); BUN (Urea Nitrogen) 22 mg/dL (8.4-25.7); Calc. Creatinine Clearance 0 mL/min (70-130); Calcium 8.7 mg/dL (7.8-10.44); Carbon Dioxide 22 mmol/L (23-31); Chloride 100 mmol/L (98-107); Estimated GFR-MDRD 55; Glucose 229 mg/dL (83-110); Potassium 4.1 mmol/L (3.5-5.1); Sodium 135 mmol/L (136-145)
[2020-07-18 14:48] LABS: SARS-CoV-2 MS2 Positive; SARS-CoV-2 N Gene Negative; SARS-CoV-2 S Gene Negative; SARS-CoV-2 by NAA Not Detected (NotDetected); SARS-CoV-2 orf1ab Negative
[2020-07-22] MEDS ORDERED: Bupivacaine PF 0.5% 30 ML VIAL ONE (06:33)
[2020-07-22] MEDS ORDERED: EPINEPHrine 1 MG/ML AMP ONE (06:33)
[2020-07-22] MEDS ORDERED: Albumin 5% 500 ML ONE (06:33)
[2020-07-22] MEDS ORDERED: Dexamethasone 20 MG/5 ML VIAL ONE ×2 (06:33→14:52)
[2020-07-22] MEDS ORDERED: Dexamethasone 4 mg/ml Vial ONE (06:34)
[2020-07-22] MEDS ORDERED: Fentanyl 250 MCG/5 ML VIAL ONE (06:47)
[2020-07-22] MEDS ORDERED: Dexmedetomidine 200 MCG/2 ML VIAL ONE (06:48)
[2020-07-22] MEDS ORDERED: Midazolam HCl 5 mg/5 ml Vial ONE (06:48)
[2020-07-22] MEDS ORDERED: Midazolam HCl 2 mg/2 ml Vial ONE (07:07)
[2020-07-22] MEDS ORDERED: Heparin 10,000 UNITS/1 ML VIAL 30,000 UNITS in Sodium Chloride 0.9% 1,000 ML FS SCH (07:30)
[2020-07-22] MEDS ORDERED: Sodium Chloride 0.9% 30 ML ONE (07:48)
[2020-07-22] MEDS ORDERED: Insulin Regular 300 UNITS/3 ML VIAL ONE ×2 (08:53→12:03)
[2020-07-22] MEDS ORDERED: PHENYLEPHRINE-NS 100 MCG/ML 10 ML SYRINGE ONE ×2 (09:12→10:13)
[2020-07-22 12:00] LABS: Actual Bicarbonate (HCO3a) 22.3 mEq/L (22-28); Analyzer IN Cardio ER; CO2 Tension 45.8 mmHg (35.0-45.0); Calcium, Ionized (arterial) 1.16 mmol/L (1.12-1.30); Carboxyhemoglobin (COHb) 0.3 gm% (0.0-3.0); Hemoglobin (Hb) 12.1 g/dL (14.0-18.0); O2 Tension (PaO2), arterial 135.9 mmHg (> 70.0); Potassium - ABG Lab 3.76 mmol/L (3.70-5.30); Puncture Site ALINE; pH, Arterial 7.31 (7.35-7.45)
[2020-07-22] MEDS ORDERED: traMADol HCl 50 MG TAB PO PRN ×2 (12:12)
[2020-07-22] MEDS ORDERED: Guaifenesin DM 100-10/5 ML UDCUP PO PRN (12:12)
[2020-07-22] MEDS ORDERED: Nitroglycerin 50 MG/250 ML BOT 250 ML IVPB PRN (12:12)
[2020-07-22] MEDS ORDERED: Hetastarch 6% 500 ML 500 ML IVPB PRN (12:12)
[2020-07-22] MEDS ORDERED: Norepinephrine 8 MG/0.9% NS 250 ML IVPB PRN (12:12)
[2020-07-22] MEDS ORDERED: hydrALAZINE 20 MG/ML VIAL SLOW IVP PRN (12:12)
[2020-07-22] MEDS ORDERED: Potassium Chloride 20 MEQ/100 ML PREMIX BAG IVPB PRN (12:12)
[2020-07-22] MEDS ORDERED: Bisacodyl 5 MG TAB PO PRN (12:12)
[2020-07-22] MEDS ORDERED: Fentanyl 100 MCG/2 ML VIAL SLOW IVP PRN ×2 (12:12)
[2020-07-22] MEDS ORDERED: Acetaminophen 325 MG TAB PO PRN (12:12)
[2020-07-22] MEDS ORDERED: Morphine 2 MG/ML VIAL SLOW IVP PRN (12:12)
[2020-07-22] MEDS ORDERED: Bisacodyl 10 MG SUPP PR PRN (12:12)
[2020-07-22] MEDS ORDERED: Ondansetron PF 4 MG/2 ML Vial IVP PRN (12:12)
[2020-07-22] MEDS ORDERED: Post-Op Insulin Drip Protocol IVPB ONE (12:12)
[2020-07-22] MEDS ORDERED: Mag-Al 1200 mg/1200 mg/30 ML UDCUP PO PRN (12:12)
[2020-07-22] MEDS ORDERED: Magnesium 2 GM/50 ML 2 GM in Premix Bag 1 BAG IVPB SCH (12:15)
[2020-07-22] MEDS ORDERED: D5 1/2 NS w/20 mEq KCL 1,000 ML IV SCH (12:15)
[2020-07-22 12:23] LABS: Hemoglobin 11.2 g/dL (14.0-18.0); Mean Corpuscular HGB CONC 32.3 g/dL (32.0-36.0); Mean Corpuscular Hemoglobin 31.2 pg (27.0-31.0); Mean Corpuscular Volume 96.7 fL (78.0-98.0); Mean Platelet Volume 8.8 fL (7.4-10.4); Platelet Count 287 thou/uL (130-400); RBC Distribution Width 12.6 % (11.5-14.5); Red Blood Cell (RBC) Count 3.59 mill/uL (4.70-6.10); White Blood Cell (WBC) Count 29.3 thou/uL (4.8-10.8)
[2020-07-22 12:27] LABS: INR-International Normal Ratio 1.2; PTT 38.6 sec (22.9-36.1); Prothrombin Time 15.3 sec (12.0-14.7)
[2020-07-22] MEDS ORDERED: Albumin 5% 250 ML ONE (12:28)
--- NOTE | 2020-07-22 12:29 | RAD ---
PORTABLE CHEST 1 VIEW: DATE: 07/22/2020. TIME: 12:06 PM. HISTORY: Postop open heart surgery. FINDINGS/IMPRESSION: There are changes of median sternotomy. There is a right subclavian central line with tip in the pro jection of the right atrium. Mediastinal drain and left-sided chest tube have been placed. No pneum othoraces, lobar consolidation, or large effusions are noted. Increased density is seen in the right lung apex. POS: [facility]
[2020-07-22] MEDS ORDERED: Amiodarone 150 MG, Admixture Fee 1 EACH in Dextrose 5% in Water 100 ML IVPB SCH (12:30)
[2020-07-22] MEDS: Amiodarone 450 MG, Admixture Fee 1 EACH in Dextrose 5% in Water 250 ML IVPB SCH (12:37)
[2020-07-22 12:40] LABS: Band 24 % (5-11); Lymphocytes 20 % (21-51); MDiff Complete? YES; Monocytes 4 % (0-10); Neutrophil 52 % (42-75); RBC Morphology Normal
[2020-07-22 12:43] LABS: Anion Gap 13 mmol/L (10-20); BUN (Urea Nitrogen) 19 mg/dL (8.4-25.7); Calc. Creatinine Clearance 85 mL/min (70-130); Calcium 7.8 mg/dL (7.8-10.44); Carbon Dioxide 21 mmol/L (23-31); Chloride 107 mmol/L (98-107); Estimated GFR-MDRD 67; Glucose 135 mg/dL (83-110); Potassium 3.8 mmol/L (3.5-5.1); Sodium 137 mmol/L (136-145)
[2020-07-22] MEDS ORDERED: HUMULIN R 100 UNITS in Sodium Chloride 0.9% 100 ML IVPB SCH (12:45)
[2020-07-22] MEDS ORDERED: Dextrose 50% Abboject 50 ML SYRINGE SLOW IVP PRN (12:45)
[2020-07-22] MEDS ORDERED: Insulin Regular 300 UNITS/3 ML VIAL SC PRN (12:45)
[2020-07-22] MEDS ORDERED: Dextrose 5% in Water 1,000 ML IV PRN (12:45)
[2020-07-22] MEDS: CEFAZOLIN 2 GM in Premix Bag 1 BAG IVPB SCH ×2 (13:02→22:02)
[2020-07-22 13:56] VITALS: BMI 31.6
[2020-07-22] MEDS ORDERED: Calcium Chloride 1 GM/10 ML Abboject SYRINGE ONE (14:52)
[2020-07-22] MEDS ORDERED: Ondansetron PF 4 MG/2 ML Vial ONE (14:52)
[2020-07-22] MEDS ORDERED: Heparin 5,000 UNITS/ML VIAL ONE (14:52)
[2020-07-22] MEDS ORDERED: Magnesium Sulfate 1 GM/2 ML VIAL ONE (14:52)
[2020-07-22] MEDS ORDERED: Thrombin 5000 UNITS/5 ML VIAL ONE (14:52)
[2020-07-22] MEDS ORDERED: Aminocaproic Acid 5 GM/20 ML VIAL ONE (14:52)
[2020-07-22] MEDS ORDERED: Vecuronium 10 MG VIAL ONE (14:52)
[2020-07-22] MEDS ORDERED: Nitroglycerin 50 MG/250 ML BOT ONE (14:52)
[2020-07-22] MEDS ORDERED: Cardioplegic Soln 1,000 ML BAG ONE (14:52)
[2020-07-22] MEDS ORDERED: Papaverine 60 MG/2 ML VIAL ONE (14:52)
[2020-07-22] MEDS ORDERED: Glycopyrrolate 0.2 MG/ML 5 ML SYRINGE ONE (14:52)
[2020-07-22] MEDS ORDERED: Heparin 30,000 units/30 ml VIAL ONE (14:52)
[2020-07-22] MEDS ORDERED: Lidocaine 2% PF 5 ML VIAL ONE (14:52)
[2020-07-22] MEDS ORDERED: PROPOFOL 200 MG/20 ML VIAL ONE (14:52)
[2020-07-22] MEDS ORDERED: Protamine Sulfate 250 MG/25 ML VIAL ONE (14:52)
[2020-07-22] MEDS ORDERED: Potassium Chloride 60 MEQ/30 ML VIAL ONE (14:52)
[2020-07-22] MEDS ORDERED: Lidocaine 1% PF 5 ML VIAL ONE (14:52)
[2020-07-22] MEDS ORDERED: Norepinephrine 4 MG/4 ML VIAL ONE (14:52)
[2020-07-22] MEDS ORDERED: Sodium Bicarb 50 MEQ/50 ML Abboject 8.4% SYRINGE ONE (14:52)
--- NOTE | 2020-07-22 15:13 | OP ---
DATE OF PROCEDURE: 07/22/2020 PREOPERATIVE DIAGNOSES: Coronary artery disease/hypertension/dyslipidemia/paroxysmal atrial fibrillation. POSTOPERATIVE DIAGNOSES: Coronary artery disease/hypertension/dyslipidemia/paroxysmal atrial fibrillation. PROCEDURES PERFORMED: 1. Coronary artery bypass grafting x5 -. a. Left internal mammary artery to 1.75 mm left anterior descending. b. Reverse saphenous vein 1.5 mm D2. c. Reverse saphenous vein to 1.75 mm D1. d. Reverse saphenous vein in sequence to 2.0 mm distal right coronary artery and 1.75 mm distal posterior descending artery. 2. Epicardial Maze. 3. Ligation of left atrial appendage. CO-SURGEON: Rene Ross MD ANESTHESIA: General endotracheal, Dr. Roberth Cristina. PUMP TIME: 84 minutes. CROSS-CLAMP TIME: 52 minutes. LOW-CORE TEMPERATURE: 34 degrees Celsius. TOOL FILER HAND: Lakia Cevallos. DRAINS: One 24-Urdu and one 19-Ugandan chest tubes. TRANSFUSIONS: None. DESCRIPTION OF PROCEDURE: After consent was obtained, the patient was brought to the operating room and placed in supine position on the operating room table. Appropriate central line and monitors were placed and general endotracheal anesthesia was induced. Chest, abdomen, and legs were prepped and draped in usual sterile fashion. Greater saphenous vein was harvested from the left lower extremity utilizing an endoscopic technique from groin to distal calf. A median sternotomy was performed. Left internal mammary artery was harvested as a pedicle graft. The patient was systemically heparinized. Distal pedicle was infused with papaverine. Thymic fat and pericardium were divided with electrocautery. Pericardial stay sutures were placed. Aortic and atrial cannulation was performed. After adequate heparinization, retrograde prime was performed. The patient was placed on cardiopulmonary bypass. Distal targets were marked. Aortic cross-clamp was applied and antegrade sanguineous cardioplegic arrest was obtained. 1 L of antegrade cold [place] cardioplegia was given. Topical cold solution was used. On the left and on the right, the atrial pulmonary vein junction was ablated x2. The base of the left atrial appendage was ablated x1. Left atrial appendage was ligated in a running dual layer fashion with 4-0 Prolene suture. Reverse saphenous vein was anastomosed in an end-to-side fashion with the PDA and a [id number] fashion with distal RCA. Anastomoses were inspected and were hemostatic. Saphenous vein anastomosed to D2 in an end-to-side fashion with running 7-0 Prolene suture. Anastomosis was tested and was hemostatic. Reverse saphenous vein was anastomosed to D1 in an end-to-side fashion with running 7-0 Prolene suture. Anastomosis was tested and was hemostatic. The mammary artery was brought through a window in the pericardium and anastomosed to LAD in an end-to-side fashion with running 7-0 Prolene suture. On release of mammary clamps, good hooding of the anastomosis and good distal flow. Pedicle was secured with interrupted 6-0 Prolene suture. Cross-clamp was removed and partial occluding clamp placed. Saphenous vein to the right-sided graft and saphenous vein to the D2 were anastomosed to the aortic root. Saphenous vein to the D1 was anastomosed to the sidewall of D2 graft. The partial occluding clamp was removed and graft was deaired. Anastomoses were inspected for hemostasis, which was good. The patient was warmed and weaned from cardiopulmonary bypass. After resumption of sinus rhythm, good hemodynamics, temperature greater than 36.5, bypass was discontinued. Transfusion was given. Protamine was administered. Decannulation was performed. A pursestring suture was secured. Aortic cannulation site was reinforced with vein pledgeted 4-0 prolene suture. A 24-Urdu chest drain was placed in the mediastinum and a 19-Urdu chest drain passed into the left pleural cavity. The sternum was treated with vancomycin paste. After adequate hemostasis had been obtained, the sternum was closed with #7 wire. Sternum was treated with platelet-rich plasma, wires twisted and buried. Wounds were irrigated with platelet-poor plasma and closed in multiple layers. Needle, sponge, and instrument counts were all reported as correct at the end of the procedure. The patient was awakened, extubated, and transferred to the intensive care unit in stable condition. Job ID: [id number]
[2020-07-22] MEDS: Ketorolac Tromethamine 30 MG/ML VIAL IVP SCH ×2 (18:00→23:35)
[2020-07-22 18:26] LABS: Hemoglobin 9.5 g/dL (14.0-18.0)
[2020-07-22 18:39] LABS: Potassium 4.5 mmol/L (3.5-5.1)
[2020-07-22] MEDS ORDERED: Famotidine/PF 20 mg/2ml Vial SLOW IVP SCH (21:00)
[2020-07-22] MEDS: Atorvastatin Calcium 40 MG TAB PO SCH (22:02)
[2020-07-23] MEDS: Amiodarone 450 MG, Admixture Fee 1 EACH in Dextrose 5% in Water 250 ML IVPB SCH (03:00)
[2020-07-23 04:13] LABS: #Lymphocytes 1.7 thou/uL (1.20-3.40); #Monocytes 1.2 thou/uL (0.11-0.59); #Neutrophils 12.2 thou/uL (1.40-6.50); %Eosinophils 0.1 % (0.0-10.0); %Lymphocytes 11.3 % (21.0-51.0); %Monocytes 8.5 % (0.0-10.0); %Neutrophils 80.7 % (42.0-75.0); Hemoglobin 9.3 g/dL (14.0-18.0); Mean Corpuscular Volume 96.7 fL (78.0-98.0); Mean Platelet Volume 9.5 fL (7.4-10.4); Platelet Count 231 thou/uL (130-400); RBC Distribution Width 12.8 % (11.5-14.5); Red Blood Cell (RBC) Count 2.99 mill/uL (4.70-6.10); White Blood Cell (WBC) Count 15.5 thou/uL (4.8-10.8)
[2020-07-23 04:18] LABS: Anion Gap 14 mmol/L (10-20); BUN (Urea Nitrogen) 20 mg/dL (8.4-25.7); Calc. Creatinine Clearance 80 mL/min (70-130); Carbon Dioxide 21 mmol/L (23-31); Chloride 107 mmol/L (98-107); Estimated GFR-MDRD 59; Glucose 127 mg/dL (83-110); Potassium 4.6 mmol/L (3.5-5.1); Sodium 137 mmol/L (136-145)
[2020-07-23] MEDS: Levothyroxine Sodium 50 MCG TAB PO SCH (05:58)
[2020-07-23] MEDS: Ketorolac Tromethamine 30 MG/ML VIAL IVP SCH ×3 (05:58→17:25)
[2020-07-23] MEDS: CEFAZOLIN 2 GM in Premix Bag 1 BAG IVPB SCH (05:58)
--- NOTE | 2020-07-23 06:29 | CON ---
DATE OF CONSULTATION: 07/22/2020 REASON FOR CONSULTATION: Status post CABG. PRIMARY CAD DRAFTSMAN: Oren Wynn MD HISTORY OF PRESENT ILLNESS: Mr. Calixto is a pleasant 75-year-old white gentleman who comes to the hospital for a planned CABG. I was asked by Dr. Wynn to do a heart catheterization on him. This happened a few weeks back and he was found to have severe multivessel disease. He underwent coronary artery bypass grafting x5 as well as a left atrial appendage ligation for his history of paroxysmal atrial fibrillation that was recently diagnosed. He also underwent an epicardial Maze procedure. He did well postoperatively. On my evaluation, he is extubated, in good spirits. He has no really complaints except for just feeling sore all over the place, but he feels that he is going to get through this without issues. PAST MEDICAL HISTORY: 1. Coronary artery disease as above. 2. Paroxysmal atrial fibrillation. 3. Type 2 diabetes. 4. Hypertension. PAST SURGICAL HISTORY: 1. Appendectomy. 2. Benign tumor removed at age 4. 3. Cholecystectomy. 4. Cubital tunnel release. 5. Cervical laminectomy. 6. CABG x4 with left atrial appendage ligation and epicardial Maze procedure done earlier today. OUTPATIENT MEDICATIONS: 1. Invokana 100 mg a day. 2. Atorvastatin 40 mg at bedtime. 3. Eliquis 5 mg b.i.d. 4. Metformin 500 mg q.p.m. 5. Pioglitazone 45 mg a day. 6. Levothyroxine 50 mcg a day. SOCIAL HISTORY: No alcohol, tobacco, or drugs. ALLERGIES: NO KNOWN DRUG ALLERGIES. FAMILY HISTORY: Noncontributory. REVIEW OF SYSTEMS: 12-point review of systems was done and was all negative unless stated in the history of present illness. PHYSICAL EXAMINATION: VITAL SIGNS: Temperature 97.2, pulse 93, respiratory rate 18, saturating 98% on room air, and blood pressure 115/61. GENERAL: Awake, alert, and oriented x3. No distress. HEENT: Normocephalic and atraumatic. NECK: Supple. LUNGS: Clear. CARDIOVASCULAR: S1 and S2. No S3 or S4. No murmurs. ABDOMEN: Soft. Positive bowel sounds. EXTREMITIES: Trace edema. SKIN: Warm and dry. LABORATORY DATA: Laboratory work was reviewed. CBC, coags, ABGs, and chemistries were reviewed. COVID PCR was negative. ASSESSMENT: 1. Status post coronary artery bypass grafting, LOPEZ to the LAD, SVG to D2, SVG to D1, SVG to the distal right coronary artery, and distal posterior descending artery. 2. Status post epicardial Maze and ligation of the left atrial appendage. 3. Hypertension. 4. Hyperlipidemia. PLAN: 1. Continue postoperative care. 2. Will need aspirin and statin for life, beta mavis, and ARTHUR inhibitor once blood pressure allows. Currently, he is still trying to get weaned off Levophed. 3. Physical therapy in the next day or so. 4. SVT postoperatively. 5. Continue amiodarone drip for now. Will probably need amiodarone for about a month or two after surgery to try to keep his atrial fibrillation and possible SVT better controlled. Thank you for letting us to participate in the care of your patient. Dr. Wynn, his primary procurement cost coordinator, will follow up in the morning. Job ID: [id number]
[2020-07-23] MEDS ORDERED: Mineral Oil ENEMA PR PRN (06:30)
[2020-07-23] MEDS ORDERED: Mag-Al 1200 mg/1200 mg/30 ML UDCUP PO PRN (06:30)
[2020-07-23] MEDS ORDERED: Milk Of Magnesia 30 ML UDCUP PO PRN (06:30)
[2020-07-23] MEDS ORDERED: Zolpidem Tartrate 5 MG TAB PO PRN (06:30)
[2020-07-23] MEDS ORDERED: Bisacodyl 10 MG SUPP PR PRN (06:30)
[2020-07-23] MEDS ORDERED: Nitroglycerin 0.4 MG TAB (25 Tab Bottle) SL PRN (06:30)
[2020-07-23] MEDS ORDERED: diphenhydrAMINE 25 MG CAP PO PRN (06:30)
[2020-07-23] MEDS ORDERED: Bisacodyl 5 MG TAB PO PRN (06:30)
[2020-07-23] MEDS: Amiodarone 200 MG TAB PO SCH ×2 (08:09→20:46)
[2020-07-23] MEDS: Aspirin 325 mg Enteric Coated Tablet PO SCH (08:09)
[2020-07-23] MEDS: Empagliflozin 10 MG TAB PO SCH (08:10)
[2020-07-23] MEDS: Pioglitazone HCl 45 MG TAB PO SCH (08:10)
[2020-07-23] MEDS: Famotidine 20 MG TAB PO SCH ×2 (08:10→20:46)
[2020-07-23] MEDS ORDERED: Magnesium 2 GM/50 ML 2 GM in Premix Bag 1 BAG IVPB SCH (09:00)
[2020-07-23] MEDS ORDERED: Aspirin 325 MG TAB PO SCH (09:00)
--- NOTE | 2020-07-23 09:55 | RAD ---
CHEST 1 VIEW: Date: 07/23/2020 INDICATION: History of open heart surgery. COMPARISON: Prior exam dated 07/22/2020. FINDINGS: There is a left-sided thoracostomy tube in place and a lower midline mediastinal drain. Right subclav carlos eduardo central venous catheter is unchanged. The pleural thickening involving the right lung apex is sim ilar appearing. Lungs remain clear. Mild cardiomegaly persists. No definite pneumothorax is evident. IMPRESSION: Stable exam. POS: BH
[2020-07-23] MEDS: Insulin Regular 300 UNITS/3 ML VIAL SC PRN ×3 (11:22→21:30)
--- NOTE | 2020-07-23 11:47 | PRG ---
DATE OF SERVICE: 07/23/2020 SUBJECTIVE: Durga is a 75-year-old male, actually already walked and is sitting in the chair. He looks great. His chest tubes are out. He has no complaints today and denies sternal or leg pain. OBJECTIVE: LUNGS: Clear. HEART: Regular rhythm. ABDOMEN: Soft. He has no abdominal tenderness. EXTREMITIES: Without edema. LABORATORY DATA: White count 15.5, hemoglobin 9.3, and platelets 231. Electrolytes are normal. Glucose has been for the most part, less than 200. IMPRESSION: 1. Status post coronary artery bypass grafting, clinically stable. 2. Obesity. 3. Diabetes. I believe it was anticipated that he will move out of critical care today. He has been quite well. We will sign off on transfer out of critical care. Job ID: [id number]
[2020-07-23] MEDS: Atorvastatin Calcium 40 MG TAB PO SCH (20:46)
[2020-07-24] MEDS: Ketorolac Tromethamine 30 MG/ML VIAL IVP SCH ×5 (00:13→23:35)
[2020-07-24] MEDS: Levothyroxine Sodium 50 MCG TAB PO SCH (05:50)
[2020-07-24] MEDS: Guaifenesin DM 100-10/5 ML UDCUP PO PRN ×2 (08:44→23:44)
[2020-07-24] MEDS: Pioglitazone HCl 45 MG TAB PO SCH (08:45)
[2020-07-24] MEDS: Famotidine 20 MG TAB PO SCH ×2 (08:45→21:36)
[2020-07-24] MEDS: Amiodarone 200 MG TAB PO SCH ×2 (08:45→21:35)
[2020-07-24] MEDS: Aspirin 325 mg Enteric Coated Tablet PO SCH (08:45)
[2020-07-24] MEDS: Furosemide 20 MG TAB PO SCH ×2 (08:45→15:17)
[2020-07-24] MEDS: Empagliflozin 10 MG TAB PO SCH (08:48)
[2020-07-24] MEDS: Insulin Regular 300 UNITS/3 ML VIAL SC PRN (17:53)
[2020-07-24] MEDS: Atorvastatin Calcium 40 MG TAB PO SCH (21:36)
[2020-07-25] MEDS: Ketorolac Tromethamine 30 MG/ML VIAL IVP SCH ×3 (06:09→17:25)
[2020-07-25] MEDS: Levothyroxine Sodium 50 MCG TAB PO SCH (06:09)
[2020-07-25] MEDS: Insulin Regular 300 UNITS/3 ML VIAL SC PRN ×3 (07:33→22:11)
[2020-07-25] MEDS: Empagliflozin 10 MG TAB PO SCH (08:52)
[2020-07-25] MEDS: Aspirin 325 mg Enteric Coated Tablet PO SCH (08:52)
[2020-07-25] MEDS: Amiodarone 200 MG TAB PO SCH ×2 (08:52→20:33)
[2020-07-25] MEDS: Furosemide 20 MG TAB PO SCH ×2 (08:52→15:34)
[2020-07-25] MEDS: Pioglitazone HCl 45 MG TAB PO SCH (08:52)
[2020-07-25] MEDS: Famotidine 20 MG TAB PO SCH ×2 (08:52→20:33)
[2020-07-25] MEDS ORDERED: Aspirin 325 mg Enteric Coated Tablet PO SCH (09:21)
[2020-07-25] MEDS ORDERED: metFORMIN 500 MG TAB PO SCH (17:00)
[2020-07-25] MEDS: Atorvastatin Calcium 40 MG TAB PO SCH (20:33)
[2020-07-25] MEDS: Guaifenesin DM 100-10/5 ML UDCUP PO PRN (22:12)
[2020-07-26] MEDS: Levothyroxine Sodium 50 MCG TAB PO SCH (05:22)
[2020-07-26] MEDS: Insulin Regular 300 UNITS/3 ML VIAL SC PRN ×2 (06:06→11:50)
[2020-07-26] MEDS: Pioglitazone HCl 45 MG TAB PO SCH (08:39)
[2020-07-26] MEDS: Famotidine 20 MG TAB PO SCH (08:39)
[2020-07-26] MEDS: Furosemide 20 MG TAB PO SCH (08:39)
[2020-07-26] MEDS: Amiodarone 200 MG TAB PO SCH (08:44)
[2020-07-26] MEDS: Empagliflozin 10 MG TAB PO SCH (08:45)
[2020-07-26] MEDS ORDERED: Aspirin 81 mg Enteric Coated Tablet PO SCH (09:00)
[2020-07-26 11:52] VITALS: BP 125/59; TEMP 97.9
--- NOTE | 2020-07-26 12:51 | EKG ---
Test Reason : POST CABG Blood Pressure : / mmHG Vent. Rate : 085 BPM Atrial Rate : 085 BPM P-R Int : 172 ms QRS Dur : 092 ms QT Int : 354 ms P-R-T Axes : 072 015 067 degrees QTc Int : 421 ms Sinus rhythm with occasional Premature ventricular complexes and Premature atrial complexes Otherwise normal ECG Confirmed by HAILEY BLANCAS MD ([id number]) on 07/26/2020 12:51:27 PM Referred By: FRANCHESKA Confirmed By:HAILEY BLANCAS MD
--- NOTE | 2020-07-26 12:51 | EKG ---
Test Reason : POST CABG Blood Pressure : / mmHG Vent. Rate : 137 BPM Atrial Rate : 104 BPM P-R Int : 000 ms QRS Dur : 086 ms QT Int : 316 ms P-R-T Axes : 000 010 168 degrees QTc Int : 477 ms Atrial fibrillation with RVR Abnormal ECG No previous ECGs available Confirmed by HAILEY BLANCAS MD ([id number]) on 07/26/2020 12:51:20 PM Referred By: FRANCHESKA Confirmed By:HAILEY BLANCAS MD
--- NOTE | 2020-07-26 12:52 | EKG ---
Test Reason : POST CABG Blood Pressure : / mmHG Vent. Rate : 147 BPM Atrial Rate : 141 BPM P-R Int : 000 ms QRS Dur : 092 ms QT Int : 316 ms P-R-T Axes : 000 022 149 degrees QTc Int : 494 ms Supraventricular tachycardia Abnormal ECG Confirmed by HAILEY BLANCAS MD ([id number]) on 07/26/2020 12:51:36 PM Referred By: FRANCHESKA Confirmed By:HAILEY BLANCAS MD
[2020-07-26] MEDS ORDERED: Amiodarone 200 MG TAB PO SCH (15:00)
--- NOTE | 2020-07-27 01:40 | DIS ---
DATE OF ADMISSION: 07/22/2020 DATE OF DISCHARGE: 07/26/2020 DIAGNOSES: 1. Coronary artery disease. 2. Chronic atrial fibrillation. 3. Hypertension. 4. Dyslipidemia. 5. Diabetes mellitus. PROCEDURES: 1. Coronary artery bypass grafting times 5. a. Left internal mammary artery to LAD. b. Saphenous vein grafts to D1, D2, and sequential vein graft to right coronary artery and distal posterior descending. 2. Epicardial Maze with ligation of left atrial appendage. DESCRIPTION OF HOSPITAL STAY: Mr. Calixto was electively admitted for bypass and Maze as above. He has done well postoperatively. He has had some continued tachyarrhythmias and we have placed him on amiodarone. He is chronically on Eliquis and he will restart this at the time of discharge. At the time of discharge, he was ambulatory, having good bowel and bladder function. He is ambulatory in the halls. Incisions are clean and dry without evidence of infection. DISCHARGE MEDICATIONS: Include; 1. Aspirin 81 mg daily. 2. Eliquis 5 mg b.i.d. 3. Lipitor 40 mg at bedtime. 4. Aspirin 81 mg daily. 5. Amiodarone 400 mg b.i.d. 6. Actos 45 mg daily. 7. Metformin 500 mg ER q.p.m. 8. Invokana 100 mg q.a.m. 9. Levothyroxine 50 mcg daily. Follow up is with me in [address] Wynn in a month. Job ID: [id number]
== END 2020-07-26 14:50 | disposition home or self-care (01) | DRG 229 ==
LOC: SURG A 07-22 06:13 → CCU 07-22 11:52 → 2NO 07-23 18:03
PROVIDERS: ADMIT Thoracic Surgery (Cardiothoracic Vascular Surgery); ATTEND Thoracic Surgery (Cardiothoracic Vascular Surgery)
PROC: 02100Z9 Bypass Coronary Artery, One Artery from Left Internal Mammary, Open Approach (ICD-10-PCS; principal; 2020-07-22)
PROC: 02580ZZ Destruction of Conduction Mechanism, Open Approach (ICD-10-PCS; 2020-07-22)
PROC: 021309W Bypass Coronary Artery, Four or More Arteries from Aorta with Autologous Venous Tissue, Open Approach (ICD-10-PCS; 2020-07-22)
PROC: 06BQ4ZZ Excision of Left Saphenous Vein, Percutaneous Endoscopic Approach (ICD-10-PCS; 2020-07-22)
PROC: 5A1221Z Performance of Cardiac Output, Continuous (ICD-10-PCS; 2020-07-22)
PROC: 02L70ZK Occlusion of Left Atrial Appendage, Open Approach (ICD-10-PCS; 2020-07-22)
DX: I25.10 Atherosclerotic heart disease of native coronary artery without angina pectoris (principal); I48.0 Paroxysmal atrial fibrillation; E03.9 Hypothyroidism, unspecified; I10 Essential (primary) hypertension; E66.9 Obesity, unspecified; E78.5 Hyperlipidemia, unspecified; E11.9 Type 2 diabetes mellitus without complications; Z79.01 Long term (current) use of anticoagulants; Z79.899 Other long term (current) drug therapy; Z79.84 Long term (current) use of oral hypoglycemic drugs; Z90.49 Acquired absence of other specified parts of digestive tract; Z98.890 Other specified postprocedural states; Z68.31 Body mass index [BMI] 31.0-31.9, adult; Z20.828 Contact with and (suspected) exposure to other viral communicable diseases
CPT/HCPCS: 36416; 36430; 71045; 80048; 82805; 85025; 85027; 85610; 85730; 86850; 86900; 86901; 87635; 93005; 93010; 93798; 97139; J0171; J0282; J0690; J1100; J1642; J1644; J1815; J1885; J2250; J2405; J2440; J2704; J2720; J3010; J3370; J3475; J3480; J3490; J7070; P9045; S0017; S0020; S0028; U0003

== ENCOUNTER 2020-08-22 20:47 | Observation (INO) | payer MEDICARE, OTHER ==
--- NOTE | 2020-08-22 21:48 | PDOC.FPRHP ---
- History of Present Illness Chief Complaint: Chest pain History of Present Illness: Patient is a 75 yo male with PMH of CAD s/p CABG (06/2020), DMII, HLD, hypothyroid, and CKD G3b who presented to [facility] ED for chest pain. He reports that he has had this chest pain off and on since before his CABG in June. It is not aggravated by certain activity or received with certain medication. He describes it as a sharp pain that does not radiate. He refers to the pain as a "muscle spasm". He says that the "muscle spasm" occurred on and off today, but around 4 pm he decided to go to the ED because it was not letting up. He denies any current chest pain and is unsure if he received relief with the nitropaste. ED Course: s/p aspirin and nitropaste - Allergies/Adverse Reactions Allergies Allergy/AdvReac Type Severity Reaction Status Date / Time No Known Drug Allergies Allergy Verified 07/22/20 14:36 - Home Medications Medication Instructions Recorded Confirmed Type Canagliflozin [Invokana] 100 mg PO QAM 05/13/20 07/20/20 History Levothyroxine Sodium [Euthyrox] 50 mcg PO DAILY 05/13/20 07/20/20 History Pioglitazone HCl 45 mg PO DAILY 05/13/20 07/20/20 History metFORMIN HCl [Metformin HCl ER] 500 mg PO QPM 05/13/20 07/20/20 History Apixaban [Eliquis] 5 mg PO BID #60 tab 05/15/20 07/20/20 Rx Atorvastatin Calcium [Lipitor] 40 mg PO HS #30 tab 05/15/20 07/20/20 Rx Amiodarone HCl 400 mg PO TID #100 tablet 07/26/20 Rx Aspirin [Ecotrin Low Strength] 81 mg PO DAILY tab 07/26/20 Rx traMADol HCl [Ultram] 50 mg PO Q12H PRN tab 07/26/20 Rx traMADol HCl [Ultram] 100 mg PO Q12H PRN tab 07/26/20 Rx - History PMHx: DM II, hypothyroid, HLD, 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 PSHx: Neck sx, back sx, R cuboidal tunnel SX, appendectomy, cholecystectomy. Benign abd tumor removal. CABG 07/22/2020. FHx: hx of DM in grandfather, glioblastoma in father Social: smoked 1 ppd of cigarettes for many years, quite over 16 years ago; denies a/d - Review of Systems General: denies: fever/chills, weight/appetite/sleep changes Eyes: denies: eye pain, vision changes ENT: reports: rhinorrhea. denies: nasal congestion Respiratory: denies: cough, shortness of breath Cardiovascular: reports: chest pain. denies: palpitation Gastrointestinal: denies: nausea, vomiting, diarrhea, constipation, abdominal pain, GI bleeding Genitourinary: denies: incontinence, dysuria Skin: denies: rashes, lesions Musculoskeletal: denies: pain, tenderness Neurological: denies: numbness, seizure Psychological: denies: anxiety, depression - Vital signs BP: 133/97 HR: 78 RR: 18 Tmax: 98.1 Pox: 98% on RA Wt: 96 kg - Physical Exam Constitutional: NAD, awake, alert and oriented HEENT: normocephalic and atraumatic, PERRLA, EOMI, grossly normal vision, MMM Neck: supple, FROM Chest: no-tender to palpation -Chest: Midline CABG scar, dry clean and intact Heart: RRR, normal S1/S2, no murmurs/rubs/gallops Lungs: CTAB, no respiratory distress, good air movement Abdomen: soft, non-tender, bowel sounds present Musculoskeletal: normal structure, normal tone Neurological: no focal deficit, normal sensation Skin: no rash/lesions, no jaundice Heme/Lymphatic: no unusual bruising or bleeding, no purpura, no petechia Psychiatric: normal mood and affect, good judgment and insight, intact recent and remote memory FMR H&P: Results - EKG Interpretation EKG: Normal sinus rhythm, no ST segment changes - Radiology Interpretation CT scan - chest Status: report reviewed by me Additional comment: 1. Moderate left pleural effusion with bibasilar atelectatic lung changes 2. Hiatal hernia 3. No ct evidence of PE Chest x-ray Status: report reviewed by me Additional comment: bilateral pleural effusion, left greater than right FMR H&P: A/P - Problem List (1) Atypical chest pain Current Visit: Yes Status: Acute Code(s): R07.89 - OTHER CHEST PAIN (2) CAD (coronary artery disease) Current Visit: No Status: Chronic Code(s): I25.10 - ATHSCL HEART DISEASE OF [place] CORONARY ARTERY W/O ANG PCTRS (3) HLD (hyperlipidemia) Current Visit: No Status: Chronic Code(s): E78.5 - HYPERLIPIDEMIA, UNSPECIFIED (4) Normocytic anemia Current Visit: No Status: Chronic Code(s): D64.9 - ANEMIA, UNSPECIFIED (5) Chronic kidney disease Current Visit: No Status: Chronic Code(s): N18.9 - CHRONIC KIDNEY DISEASE, UNSPECIFIED (6) Diabetes mellitus, non-insulin dependent Current Visit: No Status: Chronic Code(s): CPW0473 - (7) Hypothyroidism Current Visit: No Status: Chronic Code(s): E03.9 - HYPOTHYROIDISM, UNSPECIFIED - Plan Atypical Chest Pain likely 2/2 to muscle spasm vs. ACS - s/p aspirin and nitropaste in ED - CT: Moderate left pleural effusion with bibasilar atelectasis - chest xray: bilateral pleural effusion, left greater than right - Echo (04/2020): EF 60-65%, no mention of diastolic HF - trop: < 0.010, 0.015 - EKG: normal no ST changes - BNP: 113.6 - consider consulting cardiology tomorrow morning and further evaluate need for Echo - flexeril prn for muscle spasm - will continue to monitor on tele CAD s/p CABG - continue home aspirin and eliquis - see above DMII - Hgb A1C (06/2020): 7.2 - on metformin, pioglitozone, and invokana - will continue metformin and invokana - will hold pioglitozone due to cardiac risk factors, consider discontinuing on discharge - consider increasing metformin to 1000 mg BID and adding a GLP-1 HLD - continue home statin CKD G3b - Cr: 1.6 (baseline around 1.45) - GFR: 42 ( baseline around 45) - likely 2/2 to DM - will monitor Normocytic Anemia - Hgb: 11.4 - likely 2/2 to CKD - will monitor Hx of Afib - currently in normal sinus rhythm - continue home amiodarone - continue to monitor Hypothyroid - TSH (06/2020): 3.6703 - continue home levothyroxine PCP: Prahoda Code: Full IVF: none Diet: HH PPx: Eliquis Dispo: admit to tele for further monitoring; likely LOS < 48 hrs FMR H&P: Upper Level - Plan Date/Time: 08/22/202145 I, Brittney Cevallos MD, have evaluated this patient and agree with findings/plan as outlined by digital marketing intern resident. Pertinent changes/additions are listed here. This is a 75yo M with PMH of CAD s/p CABG who presented to [facility] ER with CC of "muscle spasms." He states that even ebfore his CABG in [facility] that he had these muscle spasms and they have continued since his surgery. He states the spasms are in his left upper chest, sharp, lasting <2-3 min at a time, intermittent, nonradiating. Not associated with exertion. He reports that they did become more severe around 4pm today which is why he went to the ER. He has been taking his medications as directed at home. He has follow up with his citrus fruit colorer Dr. Wynn on Monday. In the ER he was given aspirin and nitro. States he is unsure if it really helped his chest pain. His VS have been normal. Labs normal, trop neg x 1. CTA neg for PE. He was transferred here for further work up and r/o [place]. He denies active chest pain currently. Denies SOB, vision changes, diaphoresis. PE is unremarkable except for midline anterior chest scar that is well healing. Trace edema b/l LE. RRR, lungs CTAB. Patient will be admitted to [facility], obs for atypical chest pain, r/o ACS. Will delta trop him. HEART score of 4. Consider cardiology consult in the AM. Consider echo, BNP lower than previous value. Consider dc actos due to cardiac condition. Could consider GLP instead. Will continue home meds for chronic conditions. Diet: CC/HH Fluids: SL Code: FULL PCP: Koki Case discussed with Dr. Gary
[2020-08-22] MEDS ORDERED: Acetaminophen 325 MG TAB PO PRN (22:13)
[2020-08-22] MEDS ORDERED: Ondansetron ODT 4 MG TAB PO PRN (22:13)
[2020-08-22] MEDS ORDERED: Dextrose 50% Abboject 50 ML SYRINGE SLOW IVP PRN (22:44)
[2020-08-22] MEDS ORDERED: Dextrose 5% in Water 1,000 ML IV PRN (22:44)
[2020-08-22] MEDS ORDERED: HumaLOG 300 UNITS/3 ML VIAL SC PRN ×2 (22:44)
[2020-08-22] MEDS ORDERED: Cyclobenzaprine 10 MG TAB PO PRN (22:46)
[2020-08-22 23:29] VITALS: BMI 28.7
[2020-08-23] MEDS ORDERED: Levothyroxine Sodium 100 MCG TAB PO SCH (06:00)
--- NOTE | 2020-08-23 06:24 | PDOC.FM ---
- Subjective Subjective: Pt doing well this morning. Has no complaints. Refused draw for repeat troponin. Tolerating PO. Denies CP, SOB, diaphoresis, abdominal pain, EVANS, vision changes. Wants to go home today. Tele showed sinus rhythm with rate in the 70s - Objective MAR Reviewed: Yes Vital Signs & Weight: Vital Signs (12 hours) Temp Pulse Resp BP Pulse Ox 08/23/20 03:40 97.6 F 76 15 137/68 94 L 08/22/20 23:00 97.9 F 79 20 158/73 H 95 Weight Weight 96.026 kg Phys Exam - Physical Examination Constitutional: NAD HEENT: moist MMs Neck: supple, full ROM Respiratory: no wheezing, clear to auscultation bilateral Cardiovascular: RRR, no significant murmur Gastrointestinal: soft, non-tender Musculoskeletal: no edema, pulses present Neurological: moves all 4 limbs Psychiatric: normal affect, A&O x 3 Skin: normal turgor Dx/Plan - Plan Plan: Atypical Chest Pain likely 2/2 to muscle spasm vs. ACS - s/p aspirin and nitropaste in ED - CT: Moderate left pleural effusion with bibasilar atelectasis - chest xray: bilateral pleural effusion, left greater than right - Echo (04/2020): EF 60-65%, no mention of diastolic HF - trop: < 0.010, 0.015 - EKG: normal no ST changes - BNP: 113.6 - flexeril prn for muscle spasm - will continue to monitor on tele CAD s/p CABG - continue home aspirin and eliquis - see above DMII - Hgb A1C (06/2020): 7.2 - on metformin, pioglitozone, and invokana - will continue metformin and invokana HLD - continue home statin CKD G3b - Cr: 1.6 (baseline around 1.45) - GFR: 42 ( baseline around 45) - likely 2/2 to DM - will monitor Normocytic Anemia - Hgb: 11.4 - likely 2/2 to CKD - will monitor Hx of Afib - currently in normal sinus rhythm - continue home amiodarone - continue to monitor Hypothyroid - TSH (06/2020): 3.6703 - continue home levothyroxine PCP: Kobe Code: Full IVF: none Diet: HH PPx: Eliquis Dispo: admit to tele for further monitoring; likely LOS < 48 hrs. Anticipate discharge today. Follow up with Dr. Wynn with scheduled appointment on Saturday 08/25
[2020-08-23 07:41] VITALS: BP 125/58; TEMP 97.7
[2020-08-23] MEDS ORDERED: metFORMIN XR 500 MG TAB PO SCH (08:00)
[2020-08-23] MEDS ORDERED: Aspirin 325 MG TAB PO SCH (08:00)
[2020-08-23] MEDS ORDERED: Aspirin 81 mg Enteric Coated Tablet PO SCH (09:00)
[2020-08-23] MEDS ORDERED: Amiodarone 200 MG TAB PO SCH (09:00)
[2020-08-23] MEDS ORDERED: CANAGLIFLOZIN 100 MG PO SCH (09:00)
[2020-08-23] MEDS ORDERED: Atorvastatin Calcium 40 MG TAB PO SCH (09:00)
[2020-08-23] MEDS ORDERED: Apixaban 5 MG TAB PO SCH (09:00)
--- NOTE | 2020-08-23 17:14 | DIS ---
DATE OF ADMISSION: 08/22/2020 DATE OF DISCHARGE: 08/23/2020 RESIDENT: Katrin Walls MD, PGY-1 ADMITTING ATTENDING: aHri Castaneda MD DISCHARGE ATTENDING: Hari Castaneda MD CONSULTS: None. PROCEDURES: Chest x-ray, which showed bilateral pleural effusion, left larger than right, stable. CTA, which showed moderate left pleural effusion with bibasilar atelectatic lung change, hiatal hernia, no CT evidence for pulmonary embolus. PRIMARY DIAGNOSIS: Atypical chest pain, likely secondary to muscle spasm. SECONDARY DIAGNOSES: 1. Coronary artery disease, status post coronary artery bypass graft. 2. Type 2 diabetes. 3. Hyperlipidemia. 4. Chronic kidney disease, stage 3B. 5. Normocytic anemia. 6. History of atrial fibrillation. 7. Hypothyroidism. DISCHARGE MEDICATIONS: 1. Metformin 500 mg p.o. b.i.d. 2. Pioglitazone 45 mg p.o. daily. 3. Levothyroxine 100 mcg p.o. daily. 4. Invokana 100 mg p.o. every morning. 5. Eliquis 5 mg p.o. b.i.d. 6. Aspirin 81 mg p.o. daily. 7. Amiodarone 100 mg p.o. daily. 8. Lipitor 10 mg p.o. daily. Discontinued medications: None. HISTORY OF PRESENT ILLNESS/HOSPITAL COURSE: The patient is a 75-year-old male with past medical history of CAD, status post CABG in 06/2020, type 2 diabetes, hyperlipidemia, hypothyroidism, CKD stage 3B, who presented to [place] ED with chief complaint of chest pain. He stated that he had similar chest pain on and off before his CABG which was done in June. It is not aggravated by certain activity. He describes it as sharp pain that does not radiate. He refers to the pain as a muscle spasm. He says that the muscle spasm occurred on and off, but he decided to go to the ER because it would not go away and became unbearable. He denied any chest pain while in our ED and is unsure if the nitroglycerin paste helped. The patient received aspirin and nitroglycerin paste in the ED and vitals remained stable throughout his stay. EKG showed normal sinus rhythm with no ST-segment changes. Troponins were negative x2. He refused blood draw for a third troponin. BNP was slightly elevated at 113.6. The patient had an echo done in April 2020, which showed EF of 60% to 65% with no mention of diastolic heart failure. Throughout the stay, the patient had no chest pain and vitals remained stable and he asked to leave. DISPOSITION: Stable. DISCHARGE INSTRUCTIONS: 1. Location: Home. 2. Diet: Heart-healthy diet. 3. Activity: Cardiopulmonary limits. 4. Followup: With Dr. Wynn with appointment that is already set on 08/25/2020. Job ID: [id number] MIGUEL
[2020-08-24] MEDS ORDERED: Pioglitazone HCl 45 MG TAB PO SCH (09:00)
== END 2020-08-23 11:20 | disposition home or self-care (01) ==
LOC: ERS 20:47 → 2NO 21:43
PROVIDERS: ADMIT Family Medicine; ATTEND Family Medicine
DX: R07.89 Other chest pain (principal); I25.10 Atherosclerotic heart disease of native coronary artery without angina pectoris; E11.22 Type 2 diabetes mellitus with diabetic chronic kidney disease; N18.32 Chronic kidney disease, stage 3b; E78.5 Hyperlipidemia, unspecified; D64.9 Anemia, unspecified; I48.91 Unspecified atrial fibrillation; E03.9 Hypothyroidism, unspecified; F17.210 Nicotine dependence, cigarettes, uncomplicated; Z79.84 Long term (current) use of oral hypoglycemic drugs; Z79.01 Long term (current) use of anticoagulants; Z79.899 Other long term (current) drug therapy; Z79.82 Long term (current) use of aspirin; Z86.73 Personal history of transient ischemic attack (TIA), and cerebral infarction without residual deficits; Z95.1 Presence of aortocoronary bypass graft
CPT/HCPCS: 82962; 83880; 84484; 93005; 99285; G0378 ×3; 36416

== ENCOUNTER 2020-09-30 15:06 | Emergency (ER) | payer MEDICARE, OTHER ==
--- NOTE | 2020-09-30 16:02 | RAD ---
Exam: Chest one view HISTORY:Difficulty swallowing, x3-4 weeks. Worsening symptoms everyday. Comparison: 08/22/2020 FINDINGS: Cardiac silhouette:Normal cardiac silhouette. Sternotomy wires are redemonstrated. Aorta: A elongated Pulmonary vessels: Normal Costophrenic angles: Small bilateral effusions LUNGS: Scattered interstitial opacities. Pneumothorax: None Osseous abnormalities: None IMPRESSION: Bilateral effusions with scattered interstitial opacities. Correlate for volume overload/ pulmonary edema.
[2020-09-30 16:24] LABS: #Eosinphils 0.1 thou/uL (0.0-0.7); #Lymphocytes 2.4 thou/uL (1.20-3.40); #Monocytes 0.8 thou/uL (0.11-0.59); %Basophils 0.4 % (0.0-1.0); %Lymphocytes 25.4 % (21.0-51.0); %Monocytes 8.8 % (0.0-10.0); %Neutrophils 64.4 % (42.0-75.0); Mean Corpuscular HGB CONC 32.1 g/dL (32.0-36.0); Mean Corpuscular Hemoglobin 29.6 pg (27.0-31.0); Mean Corpuscular Volume 92.1 fL (78.0-98.0); Mean Platelet Volume 8.2 fL (7.4-10.4); Platelet Count 301 thou/uL (130-400); RBC Distribution Width 14.6 % (11.5-14.5); Red Blood Cell (RBC) Count 3.73 mill/uL (4.70-6.10); White Blood Cell (WBC) Count 9.3 thou/uL (4.8-10.8)
[2020-09-30 16:52] LABS: ALT (SGPT) 16 U/L (8-55); AST (SGOT) 22 U/L (5-34); Albumin 3.5 g/dL (3.4-4.8); Alkaline Phosphatase 85 U/L (40-110); Anion Gap 14 mmol/L (10-20); BUN (Urea Nitrogen) 18 mg/dL (8.4-25.7); Bilirubin, Total 0.4 mg/dL (0.2-1.2); Calc. Creatinine Clearance 0 mL/min (70-130); Calcium 8.5 mg/dL (7.8-10.44); Carbon Dioxide 31 mmol/L (23-31); Chloride 100 mmol/L (98-107); Estimated GFR-MDRD 46; Globulin 2.8 g/dL (2.4-3.5); Glucose 184 mg/dL (83-110); Potassium 4.5 mmol/L (3.5-5.1); Protein, Total 6.3 g/dL (5.8-8.1); Sodium 140 mmol/L (136-145)
--- NOTE | 2020-09-30 19:16 | CT ---
CT OF THE CHEST WITH CONTRAST CT OF THE ABDOMEN WITH CONTRAST: 09/30/20 COMPARISON: CT abdomen/pelvis 07/04/07 and CTA chest 08/22/20. HISTORY: Epigastric pain and difficulty eating. Patient has esophageal stricture starting three to four weeks ago. TECHNIQUE: 1. Multiple contiguous axial images were obtained in a CT of the chest with contrast. Sagittal a nd coronal reformats were performed. 2. Multiple contiguous axial images were obtained in a CT of the abdomen only with contrast. Sag ittal and coronal reformats were performed. FINDINGS: CT CHEST: There is a small left pleural effusion. Bilateral dependent atelectasis is seen. The heart is normal in size. No hilar or mediastinal lymphadenopathy are seen. Calcifications are see n in the aorta and coronary arteries. There is diffuse circumferential enlargement of the distal esop hagus at the gastroesophageal junction. The more proximal esophagus is normal in caliber. The patient is status post recent sternotomy. Degenerative changes are seen in the spine. The chest wall soft tissues are unremarkable. CT ABDOMEN: The patient is status post cholecystectomy. The liver, kidneys, adrenal glands, spleen, and pancreas are unremarkable. No free air, free fluid, or stranding changes are seen in the abdomen. Scattered diverticula are seen in the colon. The small bowel is normal in caliber. No abdominal adeno fauzia is appreciated. The common bile duct is large to 11 mm which may be a reservoir effect from prior cholecystectomy. There is a stable lipoma in the right lateral abdominal wall musculature. Degenerative changes are se en in the spine. There is fusion of the sacroiliac joints. IMPRESSION: 1. Small left pleural effusion with adjacent atelectasis. 2. There is diffuse circumferential thickening of the wall in the distal esophagus. This could r epresent esophagitis or a malignancy in this location. Recommend direct visualization with endoscopy. 3. No evidence of acute intra-abdominal abnormality. 4. Diverticulosis. POS: EAA
== END 2020-09-30 20:34 | disposition home or self-care (01) ==
LOC: ERS 15:06
DX: K30 Functional dyspepsia (principal); E11.9 Type 2 diabetes mellitus without complications; E03.9 Hypothyroidism, unspecified; E78.5 Hyperlipidemia, unspecified; I63.9 Cerebral infarction, unspecified; I48.91 Unspecified atrial fibrillation; Z87.891 Personal history of nicotine dependence; Z79.84 Long term (current) use of oral hypoglycemic drugs; Z79.01 Long term (current) use of anticoagulants; Z79.82 Long term (current) use of aspirin; Z79.899 Other long term (current) drug therapy
CPT/HCPCS: 36415; 71045; 71260; 74160; 80053; 84484; 85025; 93005; Q9967

== ENCOUNTER 2020-11-17 14:12 | Inpatient (IN) | payer MEDICARE, OTHER ==
--- NOTE | 2020-11-17 15:56 | PDOC.FPRHP ---
- History of Present Illness Chief Complaint: SOB History of Present Illness: Patient is a 75 year old male with a history of CABG in 07/19 and esophageal cancer on chemotherapy who presents with complaints of "gurgling" and productive cough since midnight. Reports symptoms waxes and wanes based on movement. Denies SOB or wheezing. Also denies headache, vision changes, chest pain, rib pain, palpitations, nausea, abdominal pain, flank pain, and edema. Patient has a history of pleural effusion and states the symptoms are the same. Had never undergone thoracentesis before. He called [facility] this am as he had a follow up appointment with oncology and was instructed to come to the ED. ED Course: In the [place] ED, patient was noted to be tachycardic with HR 150s. Given 1 L NS with improvement to 130s. EKG showed sinus tachycardia. CXR showed new PICC line and stable pleural thickening. CTA Chest was negative for pulmonary embolism, showed moderate L pleural effusion. Also given Vanc and Cefepime prior to transfer to [place] ED. - Allergies/Adverse Reactions Allergies Allergy/AdvReac Type Severity Reaction Status Date / Time influenza virus vaccine ts Allergy Verified 11/18/20 00:41 [id number] (36 mos,up) [From Fluarix] - Home Medications Medication Instructions Recorded Confirmed Type Canagliflozin [Invokana] 100 mg PO QAM 05/13/20 11/17/20 History Levothyroxine Sodium [Euthyrox] 100 mcg PO DAILY 05/13/20 11/17/20 History Pioglitazone HCl 45 mg PO DAILY 05/13/20 11/17/20 History metFORMIN HCl [Metformin HCl ER] 500 mg PO BID 05/13/20 11/17/20 History Apixaban [Eliquis] 5 mg PO BID #60 tab 05/15/20 11/17/20 Rx Aspirin [Ecotrin Low Strength] 81 mg PO DAILY tab 07/26/20 11/17/20 Rx Atorvastatin Calcium [Lipitor] 10 mg PO DAILY 08/23/20 11/17/20 History Amoxicillin/Potassium Clav 1 each PO BID 7 Days #14 tablet 11/18/20 Rx [Augmentin 875-125 Tablet] Cholecalciferol (Vitamin D3) 400 units PO DAILY tab 11/18/20 Rx [Vitamin D3] guaiFENesin ER [Mucinex] 600 mg PO Q12HR tab 11/18/20 Rx - History PMHx: DM II, hypothyroid, HLD, CVA w/o deficits 04/2020, Afib, pleural effusion, esophageal cancer on chemo PSHx: Neck sx, back sx, R cuboidal tunnel SX, appendectomy, cholecystectomy. Benign abd tumor removal. CABG 07/22/2020. FHx: hx of DM in grandfather, glioblastoma in father Social: smoked 1 ppd of cigarettes for many years, quite over 16 years ago; denies a/d - Review of Systems General: denies: fever/chills, fatigue Eyes: denies: eye pain, vision changes ENT: denies: nasal congestion, rhinorrhea Respiratory: reports: other ("gurgling"). denies: cough, congestion, shortness of breath Cardiovascular: denies: chest pain, palpitation, edema Gastrointestinal: denies: nausea, vomiting, constipation, abdominal pain Genitourinary: denies: dysuria, polyuria Skin: denies: rashes, itching Musculoskeletal: denies: pain, tenderness Neurological: denies: numbness, weakness Psychological: denies: anxiety, depression - Vital signs BP: [117/80] HR: [137] RR: [21] Tmax: [98] Pox: []% on [] Wt: [] - Physical Exam Constitutional: NAD, awake, alert and oriented HEENT: normocephalic and atraumatic, conjunctiva clear, MMM Neck: FROM, trachea midline Chest: no-tender to palpation Heart: RRR, normal S1/S2, no murmurs/rubs/gallops -Heart: Trace pitting edema on lower extremities bilaterally Lungs: no respiratory distress, good air movement, no retractions -Lungs: Diffuse rhonchi present, no wheezing or rales. Abdomen: soft, non-tender, bowel sounds present Musculoskeletal: normal structure, ROM grossly normal Neurological: no focal deficit, CN II-XII intact Skin: no rash/lesions, no jaundice Heme/Lymphatic: no unusual bruising or bleeding Psychiatric: normal mood and affect, good judgment and insight FMR H&P: Results - Labs Result Diagrams: 11/18/20 06:00 11/18/20 06:00 - Radiology Interpretation Chest x-ray Status: report reviewed by me Additional comment: Stable pleural thickening, new PICC line in place CT scan - chest Status: report reviewed by me Additional comment: No pulmonary embolism, moderate L pleural effusion FMR H&P: A/P - Problem List (1) Pleural effusion Current Visit: Yes Status: Acute Code(s): J90 - PLEURAL EFFUSION, NOT ELSEWHERE CLASSIFIED (2) CAD (coronary artery disease) Current Visit: No Status: Chronic Code(s): I25.10 - ATHSCL HEART DISEASE OF [place] CORONARY ARTERY W/O ANG PCTRS (3) Diabetes mellitus, non-insulin dependent Current Visit: No Status: Chronic Code(s): XAP8927 - (4) HLD (hyperlipidemia) Current Visit: No Status: Chronic Code(s): E78.5 - HYPERLIPIDEMIA, UNSPECIFIED (5) Hypothyroidism Current Visit: No Status: Chronic Code(s): E03.9 - HYPOTHYROIDISM, UNSPECIFIED (6) Normocytic anemia Current Visit: No Status: Chronic Code(s): D64.9 - ANEMIA, UNSPECIFIED - Plan 75 year old with esophageal cancer on chemo at [facility] presented with gurgling and cough Left pleural effusion likely 2/2 esophageal cancer Likely due to malignancy and post-op CABG from 07/19. Mderately increased pleural effusion based on CT in 10/[address] in ED. Sat'ing 100% on RA without compla ints of SOB. In ED: WBC 12.5, BNP 190, COVID neg, Flu neg. -Admit to tele inpatient -s/p Cefepime and Vanc in ED. 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 Followed by [facility] -Undergoing chemo, next scheduled on 11/18 -Feeding tube in place -Further management as above Hypokalemia K 3.3 in [place] ED -Monitor with am labs. Replete as needed DMII -Continue home meds -Mild SSI in place -Hypoglycemic protocol Afib Sinus tachycardia in ED, improved after 1 L NS. -Continue home eliquis. Will hold in am for possible intervention by pulmonology -Continue home meds CAD s/p CABG Underwent CABG on 07/19. Cardiology: Dr. Wynn. CT: Dr. Green -Continue home meds Hypothyroidism -TSH level -Continue home meds Hx TIA Hx CVA without deficits in 05/18 -Aware Normocytic anemia Hgb 11.6, MCV 86 in ED. Likely due to anemia of chronic disease. -Monitor with am labs CKD3 -Appears to be at baseline -Renally dose medications as indicated PCP: [facility] Code: FULL DVT: Home Eliquis Dispo: Admit to tele inpt, expected LOS > 48 hours FMR H&P: Upper Level - Pertinent history HPI/CC/ROS: 75yo M with h/o esophageal cancer undergoing chemo at [facility], Afib on Eliquis, DMII, CAD s/p CABG, CKD 3b, hypothyroidism, TIA who presents with "gurgling" sensation with breathing and mild intermittent SOB. Patient was recently admitted to [facility] for displaced feeding tube and was discharged yesterday. Overnight patient had intermittent sensation and SOB, called [facility] this AM who told him to be seen at local ED. Patient has upcoming Chemo tomorrow. Patient denies any fever/chills, recent infection, CP, nausea, abd pain. Did have 1 episode of post-tussive emesis. See Transcriptionist note for full documentation. PE: 144/81, 139, 22, 98.5, 100% on RA, 2kg General: Comfortable sitting upright in bed, NAD, pleasant HEENT: MMM, EOMI, Neck supple, trachea midline Cards: RRR Lungs: Course rhonchi throughout, no wheeze Abd: Feeding tube in place, dressing c/d/i, abd soft/nontender/nondistended, normoactive bowel sounds Ext: No Edema WBC 12.5, Hb 11.6, D-dimer 1.39, Cr 0.92, Trop <0.010, BNP 190, COVID negative, Flu negative CXR - R PICC and LUQ pigtail catheter CTA- Negative for PE. Moderal L pleural effusion. Thickened esophagus, lymph node enlargement A/P: 75yo M with h/o esophageal cancer undergoing chemo at [facility], Afib on Eliquis, DMII, CAD s/p CABG, CKD 3b, hypothyroidism, TIA who presents with moderate pleural effusion. #Pleural effusion, likely malignant - L-sided, found on CTA, present on CT in Dec, moderately increased from previous study - Satting 100% on RA, mild tachycardia, afebrile, BP Stable - WBC 12.5, COVID/Flu negative, s/p Vanc and Cefepime in ED - Mild, intermittent sxs - Likely malignant and post-op CABG changes, BNP negative, low suspicion for CHF - Consider thoracentesis in AM, consider Pulm consult in AM #Esophageal adenocarcinoma - Diagnosed by EGD 10/05/20, associated esophageal stricture - undergoing chemo at [facility], next due 11/18 - Recent hospitalization at [facility] and discharged 11/16 - Likely cause of above - Feeding tube #Afib - Sinus tach in ED - On Home eliquis and amio #DMII - Home meds, hypoglycemic protocol #CAD S/p CABG - aware, trop and BNP negative - Managed by Dr. Green and Dr. Wynn #Hypothyroidism - home meds PCP: Zackery Code: Full IVF: SL Diet: HH VTE: Home Eliquis Dispo: Admit to tele inpt for symptomatic pleural effusion. Consider thora and pulm consult in AM. - Plan Date/Time: 11/17/20 [id number] IRyan, have evaluated this patient and agree with findings/plan as outlined by purchasing intern resident. Pertinent changes/additions are listed here. Addendum - Attending - Attending Attestation Date/Time: 11/18/20 2731 I personally evaluated the patient and discussed the management with Dr. Cosby. I agree with the History, Examination, Assessment and Plan documented above with any addition or exceptions noted below. Hold on thora as patient refuses, reportedly is longstanding p CABG, and in light of CA dx will consult pulm.
[2020-11-17] MEDS ORDERED: Ondansetron ODT 4 MG TAB PO PRN (17:09)
[2020-11-17] MEDS ORDERED: Acetaminophen 325 MG TAB PO PRN (17:09)
[2020-11-17] MEDS ORDERED: Ondansetron PF 4 MG/2 ML Vial IVP PRN (17:09)
[2020-11-17] MEDS ORDERED: HumaLOG 300 UNITS/3 ML VIAL SC PRN ×2 (17:28)
[2020-11-17] MEDS ORDERED: Dextrose 50% Abboject 50 ML SYRINGE SLOW IVP PRN (17:28)
[2020-11-17] MEDS ORDERED: Dextrose 5% in Water 1,000 ML IV PRN (17:28)
[2020-11-17] MEDS ORDERED: Apixaban 5 MG TAB PO SCH (21:00)
[2020-11-17] MEDS ORDERED: Atorvastatin Calcium 10 MG TAB PO SCH (21:00)
[2020-11-17] MEDS ORDERED: metFORMIN XR 500 MG TAB PO SCH (23:21)
[2020-11-17] MEDS ORDERED: Pioglitazone HCl 45 MG TAB PO SCH (23:21)
[2020-11-18] MEDS ORDERED: Cholecalciferol (Vitamin D3) 400 UNITS TAB PO SCH (00:15)
[2020-11-18 02:18] VITALS: BMI 24.5
[2020-11-18] MEDS ORDERED: Levothyroxine Sodium 100 MCG TAB PO SCH (06:00)
--- NOTE | 2020-11-18 06:08 | PDOC.FM ---
- Subjective Subjective: Patient reports gurgling and cough have resolved. Requests Mucinex since he has been taking daily at home. Denies headache, vision changes, chest pain, palpitations and SOB. - Objective MAR Reviewed: Yes Vital Signs & Weight: Vital Signs (12 hours) Temp Pulse Resp BP Pulse Ox 11/18/20 03:50 97.5 F L 91 18 122/61 93 L 11/18/20 00:15 97.4 F L 128 H 18 124/65 100 Weight Weight 82 kg I&O: 11/16/20 11/17/20 11/18/20 06:59 06:59 06:59 Intake Total 300 Balance 300 Result Diagrams: 11/18/20 06:00 11/18/20 06:00 Phys Exam - Physical Examination Constitutional: NAD HEENT: moist MMs, sclera anicteric Neck: full ROM Rhonchi present - significanly improved since yesterday Cardiovascular: RRR, no significant murmur Gastrointestinal: soft, non-tender, positive bowel sounds Musculoskeletal: no edema Neurological: non-focal, moves all 4 limbs Psychiatric: normal affect, A&O x 3 Skin: no rash Dx/Plan (1) Pleural effusion Code(s): J90 - PLEURAL EFFUSION, NOT ELSEWHERE CLASSIFIED Status: Acute (2) CAD (coronary artery disease) Code(s): I25.10 - ATHSCL HEART DISEASE OF [place] CORONARY ARTERY W/O ANG PCTRS Status: Chronic (3) Diabetes mellitus, non-insulin dependent Code(s): [id number] - Status: Chronic (4) HLD (hyperlipidemia) Code(s): E78.5 - HYPERLIPIDEMIA, UNSPECIFIED Status: Chronic (5) Hypothyroidism Code(s): E03.9 - HYPOTHYROIDISM, UNSPECIFIED Status: Chronic (6) Normocytic anemia Code(s): D64.9 - ANEMIA, UNSPECIFIED Status: Chronic - Plan Plan: 75 year old with esophageal cancer on chemo at [facility] presented with gurgling and cough Left pleural effusion likely 2/2 esophageal cancer Likely due to malignancy and post-op CABG from 07/19. Mderately increased pleural effusion based on CT in 10/[address] in ED. Sat'ing 100% on RA without complaints of SOB. In ED: WBC 12.5, BNP 190, COVID neg, Flu neg. -Monitor on tele inpatient -s/p Cefepime and Vanc in ED. Will not continue due to low suspicion for infection -Consult pulm for evaluation and possible thoracentesis. 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 Followed by [facility] -Undergoing chemo, next scheduled on 11/18 -Feeding tube in place -Further management as above Hypokalemia, resolved K 3.3 in [place] ED, now 3.6 -Monitor with am labs. Replete as needed DMII -Continue home meds -Mild SSI in place -Hypoglycemic protocol Afib Sinus tachycardia in ED, improved after 1 L NS. Now NSR on tele -Continue home eliquis. Will hold this am for possible intervention by pulmonology -Continue home meds CAD s/p CABG Underwent CABG on 07/19. Cardiology: Dr. Wynn. CT: Dr. Green -Continue home meds Hypothyroidism -TSH level WNL -Continue home meds Hx TIA Hx CVA without deficits in 05/18 -Aware Normocytic anemia Hgb 11.6, MCV 86 in ED. Hgb now 9.7. Likely due to anemia of chronic disease. -Monitor with am labs CKD3 -Appears to be at baseline -Renally dose medications as indicated PCP: [facility] Code: FULL DVT: Home Eliquis (holding) Dispo: Home pending pulmonology evaluation and further medical management Addendum - Attending - Attending Attestation Date/Time: 11/18/20 [id number] I personally evaluated the patient and discussed the management with the team. I agree with the History, Examination, Assessment and Plan documented above with any addition or exceptions noted below. Discussed with patient the possibility of pulm recommending a thoracentesis. He became agitated. I discussed that depending on the etiology a tap may be recommended and that, ultimately, it was his decision. He asked to terminate the conversation. I apologized for any offense.
[2020-11-18 06:44] LABS: #Eosinphils 0.1 thou/uL (0.0-0.7); #Lymphocytes 1.9 thou/uL (1.20-3.40); #Monocytes 0.8 thou/uL (0.11-0.59); #Neutrophils 5.1 thou/uL (1.40-6.50); %Basophils 0.5 % (0.0-1.0); %Eosinophils 1.7 % (0.0-10.0); %Lymphocytes 23.8 % (21.0-51.0); %Monocytes 9.8 % (0.0-10.0); %Neutrophils 64.1 % (42.0-75.0); Hemoglobin 9.7 g/dL (14.0-18.0); Mean Corpuscular HGB CONC 32.5 g/dL (32.0-36.0); Mean Corpuscular Hemoglobin 28.6 pg (27.0-31.0); Mean Corpuscular Volume 87.9 fL (78.0-98.0); Mean Platelet Volume 8.1 fL (7.4-10.4); Platelet Count 197 thou/uL (130-400); RBC Distribution Width 16.9 % (11.5-14.5); White Blood Cell (WBC) Count 7.9 thou/uL (4.8-10.8)
[2020-11-18 07:00] LABS: Anion Gap 14 mmol/L (10-20); BUN (Urea Nitrogen) 15 mg/dL (8.4-25.7); Calc. Creatinine Clearance 92 mL/min (70-130); Calcium 7.6 mg/dL (7.8-10.44); Carbon Dioxide 22 mmol/L (23-31); Chloride 107 mmol/L (98-107); Glucose 155 mg/dL (83-110); Potassium 3.6 mmol/L (3.5-5.1); Sodium 139 mmol/L (136-145)
[2020-11-18] MEDS ORDERED: metFORMIN XR 500 MG TAB PO SCH ×2 (08:00)
[2020-11-18] MEDS ORDERED: guaiFENesin ER 600 MG TAB PO SCH (09:00)
[2020-11-18] MEDS ORDERED: Pioglitazone HCl 45 MG TAB PO SCH (09:00)
[2020-11-18] MEDS ORDERED: Empagliflozin 10 MG TAB PO SCH (09:00)
[2020-11-18 11:40] VITALS: BP 150/76; TEMP 97.7
--- NOTE | 2020-11-18 12:07 | CON ---
DATE OF CONSULTATION: 11/18/2020 REASON FOR CONSULTATION: Left pleural effusion. HISTORY OF PRESENT ILLNESS: This is a 75-year-old male, who presented last night with "gurgling" in his chest. He has a history of distal esophageal cancer. He is currently seen in [facility] for chemotherapy. He had coronary artery bypass grafting surgery back in June 2020. He has had a left pleural effusion ever since, which is really not that large in size. He says he just got discharged from [facility] after being seen there with a PEG tube that had migrated down into the small bowel. It was pulled back. He denies that he had any peritonitis. He woke up yesterday with gurgling sensation in his chest. He thought this was from the left pleural effusion. He does try to eat and drink sometimes. It sounds like he does have some aspiration issues and he takes most of his feeds through his PEG tube. PAST MEDICAL HISTORY: 1. Esophageal cancer. 2. Unknown left pleural effusion. 3. Hyperlipidemia. 4. Hypothyroidism. 5. Anemia. 6. Coronary artery disease. PAST SURGICAL HISTORY: 1. Neck surgery. 2. Appendectomy. 3. Cholecystectomy. 4. Coronary artery bypass grafting surgery. FAMILY MEDICAL HISTORY: Remarkable for diabetes and glioblastoma. SOCIAL HISTORY: Smokes 1 pack per day, quit 16 years ago. REVIEW OF SYSTEMS: Denies fever, chills, or chest pain. PHYSICAL EXAMINATION: VITAL SIGNS: Temperature 98.8, pulse 91, respirations 20, O2 saturation 94% on room air, and blood pressure 137/87. GENERAL: He is awake, alert, no distress. HEENT: Unremarkable. NECK: No adenopathy or JVD. LUNGS: He has rhonchi on his right side. He is clear on his left. He has some left base. ABDOMEN: Soft and nontender. PEG tube noted. EXTREMITIES: No clubbing, cyanosis, or edema. LABORATORY DATA: White blood cell count 7.9, hematocrit 29.9, and platelet count 197. Sodium 139, potassium 3.6, chloride 107, CO2 of 22, BUN 15, creatinine 0.7, and glucose 155. ASSESSMENT AND PLAN: 1. The patient is probably symptomatic from chronic aspiration. I do not think he is symptomatic from the effusion. 2. Left pleural effusion, which is stable on serial scans - this could be from malignancy, but is most likely a post coronary artery bypass grafting pleural effusion. Recommendation since he is on Eliquis and he is asymptomatic, I would just watch the pleural effusion and repeat his scan in a month or 2. If he develops fever or the effusion increases in size, then he could have thoracentesis. 3. I would treat him with some antibiotics for possible aspiration. The patient is stable for discharge at this time. Job ID: [id number]
--- NOTE | 2020-11-18 14:20 | PQF ---
CLINICAL DOCUMENTATION CLARIFICATION FORM: Dear Dr. Cosby Date: 11/18/20 Please exercise your independent, professional judgment in responding to the clarification form. Clinical indicators are provided on the bottom of this form for your review. Please check appropriate box(es) to clarify if the following diagnosis has been ruled in our ruled out: SEPSIS [ ] Ruled in diagnosis [ ] Continue to treat [ ] Resolved [X ] Ruled out diagnosis [ ] Improving [ ] Cannot rule out diagnosis [ ] Other diagnosis [ ] Unable to determine In addition, please specify: Present on Admission (POA): [ ] Yes [ X ] No [ ] Unable to determine For continuity of documentation, please document condition throughout progress notes and discharge summary. Thank You. To be completed by CDI/Coding staff for physician review: CLINICAL INDICATORS - SIGNS / SYMPTOMS / LABS / RESULTS AND LOCATION IN MR ER NOTE: "SEPSIS" PULSE 139 RR 22 WBC 12.5 (ER NOTE) RISK FACTORS / RESULTS AND LOCATION IN MR PLEURAL EFFUSION (H&P-ASHLEE) ESOPHAGEAL CANCER (H&P) DIABETES (H&P) POSSIBLE ASPIRATION (PN 11/18- GIN) TREATMENTS / RESULTS AND LOCATION IN MR IV FLUIDS (ER) IV CEFEPIME IN GRIMED ER (ER NOTE) IV VANCOMYCIN IN LIU ER (ER NOTE) CDS Signature: Kaley Bruno RN Phone #: [phone] Date: 11/18/20 This is a permanent part of the Medical Record [facility]
[2020-11-19] MEDS ORDERED: Cholecalciferol (Vitamin D3) 400 UNITS TAB PO SCH (09:00)
--- NOTE | 2020-11-19 13:17 | DIS ---
DATE OF ADMISSION: 11/17/2020 DATE OF DISCHARGE: 11/18/2020 RESIDENT: Alena Cosby MD ADMITTING ATTENDING: Laurent Wade MD DISCHARGE ATTENDING: Laurent Wade MD CONSULTS: Dr. Dickens, Pulmonology. PROCEDURES: None. PRIMARY DIAGNOSIS: Left pleural effusion likely secondary to postop CABG. Chronic aspiration episodes. Hypokalemia SECONDARY DIAGNOSES: 1. Esophageal adenocarcinoma. 2. Chronic kidney disease 3. 3. Type 2 diabetes. 4. Atrial fibrillation. 5. Coronary artery disease, status post coronary artery bypass grafting in June 2020. 6. Hypothyroidism. 7. History of transient ischemic attack. 8. History of cerebrovascular accident without deficits in April 2020. 9. Normocytic anemia. DISCHARGE MEDICATIONS: 1. Levothyroxine 100 mcg p.o. daily. 2. Invokana 100 mg p.o. q.a.m. 3. Lipitor 10 mg p.o. daily. 4. Metformin ER 100 mg p.o. b.i.d. 5. Pioglitazone HCL 45 mg p.o. daily. 6. Mucinex 600 mg p.o. b.i.d. 7. Augmentin 875-125 one tablet p.o. b.i.d. for 7 days. 8. Aspirin 81 mg p.o. daily. 9. Eliquis 5 mg p.o. b.i.d. 10. Vitamin D3 400 units p.o. daily. HISTORY OF PRESENT ILLNESS: The patient is a 75-year-old male with a history of CABG in June of 2020, esophageal cancer, actively undergoing chemotherapy at [facility], who presented with complaints of gurgling and productive cough since midnight the day before presentation. The patient was initially tachycardic with heart rate in the 150s in the [place] ED, received 1 L normal saline with improvement of tachycardia. Chest x-ray showed a stable pleural thickening on the left. CTA was completed and was negative for pulmonary embolism, showing moderate left pleural effusion. The patient saturated 100% on room air throughout hospitalization. Dr. Dickens, Pulmonology was consulted for further evaluation. He did not recommend thoracentesis at this time. Believes gurgling and shortness of breath was due to chronic aspiration secondary to esophageal cancer rather than the pleural effusion. Recommended discharging on Augmentin for a 7-day course. The patient was instructed to follow up with the [facility] for routine care. The patient was instructed to have a repeat CTA of the chest in 1 to 2 months to monitor pleural effusion. He was deemed stable for discharge home on 11/18. DISPOSITION: Stable. DISCHARGE INSTRUCTIONS: 1. Location: Home. 2. Diet: Heart healthy and consistent carb. 3. Activity: As tolerated. 4. Followup: Follow up with [facility] later this week. Follow up with PCP, Dr. Vizcarra within one week. Job ID: [id number] MTDD
--- NOTE | 2020-12-05 21:52 | EKG ---
Test Reason : TACHYCARDIA Blood Pressure : / mmHG Vent. Rate : 138 BPM Atrial Rate : 137 BPM P-R Int : 134 ms QRS Dur : 080 ms QT Int : 276 ms P-R-T Axes : 059 005 191 degrees QTc Int : 418 ms Sinus tachycardia Low voltage QRS Nonspecific T wave abnormality Abnormal ECG Confirmed by DORA HARRIS DO ([id number]), legal editor KADEN GIORDANO ([id number]) on 12/05/2020 9:51:43 PM Referred By: Confirmed By:DORA HARRIS DO
== END 2020-11-18 14:38 | disposition home or self-care (01) | DRG 375 ==
LOC: ERS 14:12 → ERHOLD 15:17 → 2SE 11-18 00:03
PROVIDERS: ADMIT Emergency Medicine; ATTEND Emergency Medicine
DX: C15.9 Malignant neoplasm of esophagus, unspecified (principal); J91.0 Malignant pleural effusion; I25.10 Atherosclerotic heart disease of native coronary artery without angina pectoris; E78.5 Hyperlipidemia, unspecified; E03.9 Hypothyroidism, unspecified; I48.91 Unspecified atrial fibrillation; E87.6 Hypokalemia; E11.22 Type 2 diabetes mellitus with diabetic chronic kidney disease; N18.32 Chronic kidney disease, stage 3b; D63.8 Anemia in other chronic diseases classified elsewhere; Z93.1 Gastrostomy status; Z95.1 Presence of aortocoronary bypass graft; Z90.49 Acquired absence of other specified parts of digestive tract; Z98.890 Other specified postprocedural states; Z87.891 Personal history of nicotine dependence; Z92.21 Personal history of antineoplastic chemotherapy; Z79.890 Hormone replacement therapy; Z79.01 Long term (current) use of anticoagulants; Z79.82 Long term (current) use of aspirin; Z79.899 Other long term (current) drug therapy; Z79.84 Long term (current) use of oral hypoglycemic drugs; Z86.73 Personal history of transient ischemic attack (TIA), and cerebral infarction without residual deficits; Z83.3 Family history of diabetes mellitus
CPT/HCPCS: 80048; 84443; 85025; 93005